=== PATIENT | female | born 1990 | race Caucasian/White ===

== ENCOUNTER → 2017-01-23 | Outpatient (CLI) | payer OTHER ==
[2016-01-12 12:09] VITALS: BP 141/79
[~2017-01-23] MED LIST: CONTRAST GIVEN MC PRN; IOHEXOL 240 MG/ML 50ML VIAL. PO ONE; IOHEXOL 300 MG/ML 75 ML VIAL IV ONE
--- NOTE | 2017-01-23 12:29 | RAD ---
CT scan of the abdomen with contrast 01/23/2017 Clinical History: Left-sided abdominal bulge. Technique: After oral and intravenous administration of contrast, contiguous, 5 mm axial sections were obtained through the abdomen and pelvis. 75 cc of Omnipaque 300 were administered intravenously during this examination. One or more of the following individualized dose reduction techniques were utilized for this study: 1. Automated exposure control. 2. Adjustment of the mA and/or kV according to patient size. 3. Use of iterative reconstruction technique. Findings: Comparison study is dated 05/16/2006. Images through the lung bases demonstrate minimal dependent subsegmental atelectasis bilaterally. The liver parenchyma has a decreased attenuation consistent with mild fatty infiltration. The spleen, pancreas, adrenal glands and kidneys are within normal limits. The abdominal aorta tapers normally. The gallbladder is well-distended. No free fluid or free air is seen within the abdomen. There is no evidence of bowel obstruction. The appendix is not visualized. There is a small left paracentral/lateral ventral hernia within the left lower quadrant of the abdomen. This contains fat. It measures 3 cm in greatest diameter. Impression: 3 cm fat-containing left paracentral/lateral ventral hernia within the left lower quadrant of the abdomen.
== END | disposition home or self-care (01) ==
LOC: CT 10:08
PROVIDERS: ATTEND Family Medicine
DX: K43.9 Ventral hernia without obstruction or gangrene (principal); Z86.69 Personal history of other diseases of the nervous system and sense organs
CPT/HCPCS: 74160; Q9966; Q9967

== ENCOUNTER → 2017-02-06 | Outpatient (CLI) | payer OTHER ==
[2016-01-12 12:09] VITALS: BP 141/79
[~2017-02-06] VITALS: Ht 157.5 cm; Wt 99.8 kg
[~2017-02-06] MED LIST changes: -CONTRAST GIVEN MC PRN; -IOHEXOL 240 MG/ML 50ML VIAL. PO ONE; -IOHEXOL 300 MG/ML 75 ML VIAL IV ONE; +SINCALIDE 2 MCG in IV NORMAL SALINE 50ML 30 ML IV ONE
--- NOTE | 2017-02-06 12:25 | RAD ---
Hepatobiliary scan with gallbladder ejection fraction History: Vomiting. Epigastric pain and right upper quadrant abdominal pain that radiates around to the back for one year. Technique: After IV infusion of 5.5 mCi of technetium 99m Choletec, anterior planar images of the upper abdomen were performed in sequential fashion and a time/activity curve was drawn. After IV infusion of 2.0 uCi of CCK, a gallbladder ejection fraction was measured and calculated. Comparison: No previous hepatobiliary scan. Findings: There is homogeneous uptake throughout the liver. Radiotracer activity is seen within the gallbladder x 15 minutes. Radiotracer activity is seen within the duodenum x 20 minutes. Gallbladder ejection fraction is measured and calculated to be 4%. This is low. Normal is greater than 35%. IMPRESSION: Low gallbladder ejection fraction of 4%.
== END | disposition home or self-care (01) ==
LOC: NM 07:40
PROVIDERS: ATTEND Internal Medicine Gastroenterology
DX: R10.13 Epigastric pain (principal); R11.2 Nausea with vomiting, unspecified
CPT/HCPCS: 78226; 96374; 96375; A9537; J2805

== ENCOUNTER → 2017-02-13 | Day surgery (SDC) | payer OTHER ==
[~2017-02-13] MED LIST changes: +HYDROmorphone 2 MG/ML VIAL IV PRN; +IV RINGERS,LACTATED 1000ML 1,000 ML IV SCH; +LIDOCAINE 1% 1 ML SYRINGE. ID PRN; +LIDOCAINE 2% PF Vial for OR 5 ML VIAL. ONE; +MORPHINE SULFATE 2 MG/ML DISP.SYRIN. IV PRN; +ONDANSETRON PF 4 MG/2 ML VIAL. IV PRN; +PROCHLORPERAZINE 10 MG/2 ML VIAL. IV PRN; +PROPOFOL 20 ML IV ONE; -SINCALIDE 2 MCG in IV NORMAL SALINE 50ML 30 ML IV ONE; +fentaNYL PF VIAL 100 MCG/2 ML VIAL IV PRN
[2017-02-13 13:25] VITALS: BP 116/78
[2017-02-13 14:12] LABS: NEG OBC UR NEG
[2017-02-13 14:13] LABS: POS OBC UR POS
== END | disposition home or self-care (01) ==
LOC: ENDOS 12:31
PROVIDERS: ATTEND Internal Medicine Gastroenterology
DX: K29.50 Unspecified chronic gastritis without bleeding (principal); J45.909 Unspecified asthma, uncomplicated; F17.200 Nicotine dependence, unspecified, uncomplicated; M19.90 Unspecified osteoarthritis, unspecified site; D64.9 Anemia, unspecified; Z82.49 Family history of ischemic heart disease and other diseases of the circulatory system; Z72.89 Other problems related to lifestyle; Z98.51 Tubal ligation status; Z91.040 Latex allergy status; Z86.69 Personal history of other diseases of the nervous system and sense organs; Z87.39 Personal history of other diseases of the musculoskeletal system and connective tissue
CPT/HCPCS: 43235; 81025; J2704; J2001

== ENCOUNTER 2017-02-21 12:13 | Day surgery (SDC) | payer OTHER ==
[~2017-02-21 12:13] MED LIST changes: +BUPIVACAINE-EPI 0.5%-1:200000 50 ML VIAL. ONE; +IOHEXOL 300 MG/ML 50 ML VIAL. ONE; -LIDOCAINE 2% PF Vial for OR 5 ML VIAL. ONE; -PROCHLORPERAZINE 10 MG/2 ML VIAL. IV PRN; -PROPOFOL 20 ML IV ONE; +SURGICEL HEMOSTAT 4X8 EACH. ONE
[2017-02-21 12:36] LABS: NEG OBC UR NEG; POS OBC UR POS
[2017-02-21] MEDS ORDERED: LIDOCAINE 2% PF Vial for OR 5 ML VIAL. ONE (13:30)
[2017-02-21] MEDS ORDERED: PROPOFOL 20 ML IV ONE (13:30)
[2017-02-21] MEDS ORDERED: ONDANSETRON PF 4 MG/2 ML VIAL. ONE (13:30)
[2017-02-21] MEDS ORDERED: FAMOTIDINE 20 MG/2 ML VIAL ONE (13:30)
[2017-02-21] MEDS ORDERED: DEXAMETHASONE SOD PHOS 20 MG/5 ML VIAL. ONE (13:30)
[2017-02-21] MEDS ORDERED: ROCURONIUM 50 MG/5 ML VIAL. ONE (13:31)
[2017-02-21] MEDS ORDERED: fentaNYL PF VIAL 100 MCG/2 ML VIAL ONE ×2 (13:31→14:06)
[2017-02-21] MEDS ORDERED: MIDAZOLAM HCL/PF 2 MG/2 ML VIAL. ONE (13:31)
[2017-02-21] MEDS ORDERED: PHENYLEPHRINE in 0.9% NACL PF 1 MG/10 ML DISP.SYRIN. IV ONE (13:52)
[2017-02-21] MEDS ORDERED: NEOSTIGMINE METHYLSULFATE 5 MG/5 ML SYRINGE. ONE (14:28)
[2017-02-21] MEDS ORDERED: KETOROLAC 30 MG/ML INJ FOR OR. INJ ONE (14:29)
[2017-02-21] MEDS ORDERED: DESFLURANE 31 TO 60 MINUTES IH ONE (14:32)
[2017-02-21] MEDS ORDERED: DESFLURANE 16 TO 30 MINUTES. IH ONE (14:32)
[2017-02-21] MEDS ORDERED: GLYCOPYRROLATE 1 MG/5 ML VIAL. ONE (14:32)
--- NOTE | 2017-02-21 14:40 | RAD ---
Intraoperative cholangiogram, 02/21/2017: History: Cholecystectomy A single spot film from surgery is presented for review. Contrast has been injected into the cystic duct remnant. 0.1 minutes of fluoroscopy time was utilized. The cystic duct is not clearly defined in this projection. The common bile duct is of normal caliber. No filling defect is seen in that duct to suggest a retained stone. Contrast does extend into the duodenum. The incompletely opacified intrahepatic ducts are unremarkable.
--- NOTE | 2017-02-21 14:42 | PDOC4 ---
MARIOLA MOHAMUD MD 02/21/17 1442: Operative Note Operative Note DATE OF SURGERY: 02/21/2017 PREOPERATIVE DIAGNOSIS: Biliary dyskinesia. POSTOPERATIVE DIAGNOSIS: Biliary dyskinesia. PROCEDURE: Laparoscopic cholecystectomy with intraoperative cholangiogram. SURGEON: Mariola Mohamud MD ANESTHESIA: General. ESTIMATED BLOOD LOSS: 10 mL. INTRAVENOUS FLUIDS: 1000 mL. INDICATIONS: The patient is a 26-year-old female with a history of abdominal pain, nausea, vomiting. EGD was unrevealing and PIPIDA scan showed gallbladder ejection fraction that was 4%. FINDINGS: Intraoperative cholangiogram is normal. PROCEDURE IN DETAIL: After informed consent was obtained, the patient was taken to the operating room and placed in the supine position. After adequate induction of general anesthesia, an umbilical skin incision was made with a scalpel, subcutaneous tissues with a hemostat. [facility] was used to grab the fascia and lift it anteriorly. Veress was used to gain access to the peritoneal cavity. Low opening pressures confirmed intraperitoneal placement of Veress. Pneumoperitoneum to 15 mmHg was established followed by placement of 5 mm port. A 5-mm 30-degree lens was inserted, which revealed good port placement. No evidence of entry trauma. She was placed head up, rotated towards her left. Three additional ports were placed under direct vision. The sites were injected with local anesthetic. Skin incisions were made and then an epigastric 11 mm and two 5 mm right lateral ports were placed. The fundus of the gallbladder was retracted over liver and slightly towards the right. Infundibulum was retracted towards the right and towards her toes to open the triangle of Calot. The leading peritoneal edge was scored with cautery medially and laterally and carried back towards the liver. [place] dissector was then used to dissect out the triangle of Calot. At the level of the infundibulum and the completion of dissection, 3 structures were seen leading directly to the gallbladder, one was a anterior branch of the cystic artery, one was the posterior branch of the cystic artery and one was a cystic duct. The gallbladder had been dissected away from the cystic plate. The liver could be seen behind the gallbladder and base of the gallbladder was free of extraneous tissue. Two clips were placed on anterior branch of the cystic artery proximally, one distally and a clip was placed on cystic duct adjacent to the gallbladder. Ductotomy was made with scissors. Intraoperative cholangiogram showed free flow of contrast through the cystic duct, common bile duct, common hepatic, left and right hepatics, intrahepatic radicles, free flow of contrast into the duodenum with no filling defects. The catheter was removed, the cholangiogram was interpreted as normal. Three clips were placed on the cystic duct distal to the ductotomy. Ductotomy completed with scissors. Anterior branch of the cystic artery transected sharply. The posterior branch of the artery was seen terminating on the body of the gallbladder and was clipped twice proximally and once distally. The gallbladder was removed from the bed of the liver with cautery and placed in laparoscopic bag and brought out through the epigastric incision. The right upper quadrant was inspected. There was no bleeding or bile leakage noted. Fascial closure device was used to close the fascia at the epigastric incision with an 0 Vicryl suture. The ports removed under direct vision. They were hemostatic. Pneumoperitoneum was desufflated. Skin incisions were closed with 4-0 Monocryl in subcuticular fashion. Sterile dressings were placed. After removal of the ports, the incisions were closed with 4-0 Monocryl in subcuticular fashion. Additional local was injected. Sterile dressings were placed. She tolerated the procedure well. There were no apparent complications. She is in the process of being transferred in stable condition to the recovery room. MK SRIVASTAVA MD 02/25/17 1645: MARIOLA MOHAMUD MD Feb 21, 2017 14:42 MK SRIVASTAVA MD Feb 25, 2017 16:45
[2017-02-21] MEDS ORDERED: ONDA4TAB7 PO (14:45)
[2017-02-21] MEDS ORDERED: OXYC-323 PO (14:45)
[2017-02-21] MEDS ORDERED: oxyCODONE/APAP 5/325 1 TAB TABLET PO ONE ×2 (15:00)
[2017-02-21] MEDS: PROCHLORPERAZINE 10 MG/2 ML VIAL. IV PRN ×2 (15:18→15:42)
[2017-02-21 16:40] VITALS: BP 128/73
== END 2017-02-21 17:03 | disposition home or self-care (01) ==
LOC: SURG 12:13
PROVIDERS: ATTEND Surgery
DX: K82.8 Other specified diseases of gallbladder (principal); E66.9 Obesity, unspecified; F41.9 Anxiety disorder, unspecified; Z68.27 Body mass index [BMI] 27.0-27.9, adult; D64.9 Anemia, unspecified; M19.90 Unspecified osteoarthritis, unspecified site; J45.909 Unspecified asthma, uncomplicated; Z86.69 Personal history of other diseases of the nervous system and sense organs; Z98.51 Tubal ligation status; Z87.39 Personal history of other diseases of the musculoskeletal system and connective tissue; Z72.89 Other problems related to lifestyle; Z91.040 Latex allergy status
CPT/HCPCS: 47563; 74300; 81025; 88304; J0690; J0780; J1100; J1885; J2001; J2250; J2370; J2405; J2704; J2710; J3010; J3490; J7030; J7120; Q9967; S0028

== ENCOUNTER 2017-03-26 07:02 | Day surgery (SDC) | payer OTHER ==
[~2017-03-26] VITALS: Ht 158.8 cm; Wt 101.2 kg
[~2017-03-26 07:02] MED LIST changes: +BUPIVAC MPF-EPI 0.5%-1:200000 30 ML VIAL. ONE; -BUPIVACAINE-EPI 0.5%-1:200000 50 ML VIAL. ONE; -IOHEXOL 300 MG/ML 50 ML VIAL. ONE; -MORPHINE SULFATE 2 MG/ML DISP.SYRIN. IV PRN; +OMEP20CA9 PO; +ONDA4TAB7 PO; +OXYC-323 PO; -SURGICEL HEMOSTAT 4X8 EACH. ONE
[2017-03-26 07:46] LABS: NEG OBC UR NEG; POS OBC UR POS
[2017-03-26] MEDS ORDERED: LIDOCAINE 2% PF Vial for OR 5 ML VIAL. ONE (08:15)
[2017-03-26] MEDS ORDERED: PROPOFOL 20 ML IV ONE (08:15)
[2017-03-26] MEDS ORDERED: ROCURONIUM 100 MG/10 ML VIAL. ONE (08:15)
[2017-03-26] MEDS ORDERED: fentaNYL PF VIAL 250 MCG/5 ML VIAL ONE (08:16)
[2017-03-26] MEDS ORDERED: MIDAZOLAM HCL/PF 2 MG/2 ML VIAL. ONE (08:16)
[2017-03-26] MEDS ORDERED: SUCCINYLCHOLINE 200 MG/10 ML VIAL. ONE (08:19)
[2017-03-26] MEDS ORDERED: ceFAZolin 2GM PREMIX 2 GM/50 ML BAG IV ONE (09:00)
[2017-03-26] MEDS ORDERED: NEOSTIGMINE 10 MG/10 ML VIAL. ONE (09:07)
[2017-03-26] MEDS ORDERED: GLYCOPYRROLATE 1 MG/5 ML VIAL. ONE (09:08)
[2017-03-26] MEDS ORDERED: KETOROLAC 60 MG/2 ML INJ FOR OR. ONE (09:59)
[2017-03-26] MEDS ORDERED: DEXAMETHASONE SOD PHOS 20 MG/5 ML VIAL. ONE (10:04)
[2017-03-26] MEDS ORDERED: DESFLURANE 61 TO 120 MINUTES IH ONE (10:04)
[2017-03-26] MEDS ORDERED: ONDANSETRON PF 4 MG/2 ML VIAL. ONE (10:04)
[2017-03-26] MEDS ORDERED: fentaNYL PF VIAL 100 MCG/2 ML VIAL ONE (10:32)
[2017-03-26] MEDS: fentaNYL PF VIAL 100 MCG/2 ML VIAL IV PRN ×2 (10:37→10:49)
[2017-03-26] MEDS: PROCHLORPERAZINE 10 MG/2 ML VIAL. IV PRN ×2 (10:37→11:09)
[2017-03-26] MEDS ORDERED: OXYC-323 PO (10:44)
[2017-03-26] MEDS ORDERED: oxyCODONE/APAP 5/325 1 TAB TABLET PO ONE (10:45)
--- NOTE | 2017-03-26 10:45 | PDOC ---
BRIEF OPERATIVE NOTE Pre-Op Diagnosis incisional hernia lap repair of inci hernia with mesh ricky neff ebl 25 ivf 1100 ml no specimen to rr stable KENNY MOHAMUD MD Mar 26, 2017 10:45
[2017-03-26] MEDS ORDERED: MORPHINE SULFATE 2 MG/ML DISP.SYRIN. ONE (11:08)
[2017-03-26] MEDS: MORPHINE SULFATE 2 MG/ML DISP.SYRIN. IV PRN ×2 (11:10→11:20)
[2017-03-26 11:34] VITALS: BP 106/53
--- NOTE | 2017-03-26 13:35 | OP ---
DATE OF SURGERY: 03/26/2017 PREOPERATIVE DIAGNOSIS: Incisional hernia. POSTOPERATIVE DIAGNOSIS: Incisional hernia. PROCEDURE: Laparoscopic incisional hernia repair with mesh. SURGEON: Mariola Mohamud M.D. ANESTHESIA: General. ESTIMATED BLOOD LOSS: 25 mL. IV FLUIDS: 1100 mL. INDICATIONS: The patient is a 27-year-old female who has previously had a laparoscopic appendectomy through her left lower quadrant 12 mm port, she developed a hernia. She is here for repair. FINDINGS: She had a 1.5 cm fascial defect, it was repaired ____ using a round piece of Prolene mesh cut with dimension of 4 x 4 cm, it was placed in the preperitoneal space, so the mesh did not come in contact with the abdominal contents. DESCRIPTION OF PROCEDURE: After informed consent was obtained, the patient was taken to the operating room and placed in supine position. After adequate induction of general anesthesia, she was prepped and draped in usual sterile fashion. An umbilical skin incision was made with a scalpel, subcutaneous tissues with a hemostat. [facility] was used to grab the fascia and lift it anteriorly. Veress was used to gain access to the peritoneal cavity. Low opening pressures confirmed intraperitoneal placement of the Veress. Pneumoperitoneum to 15 mmHg was established followed by placement of 5 mm port. A 5 mm 30 degree lens was inserted, which revealed good port placement. No evidence of entry trauma. She had some adhesions in a low midline of omentum to the abdominal wall. Right lower quadrant incision was made and then the area was injected with local anesthetic. A 5 mm port was placed. The omental adhesions were taken down sharply with some use of cautery. There was no bowel within the adhesions. At this point, the left lower quadrant was inspected. She has small hernia in the left lower quadrant with some omentum incarcerated within this and this was able to be reduced with a DeBakey grasper, the hernia defect was measured, it measured 1.5 cm for this portion of the procedure, an additional 5 mm suprapubic port was placed under direct vision after injecting the area with local anesthetic. The 1.5 cm hernia defect was inspected and then an incision was made in the peritoneum medial to this incision and then the peritoneum was dissected from medial to lateral to clear the preperitoneal space and create a place for the mesh to be placed. At this point, stab incision was made over the hernia with a scalpel. This incision measured about 2 mm and fascial closure PMI ____ device was then used to close the fascial defect using a 0 Prolene suture. After closing the fascial defect, a piece of 3 x 6 inch Prolene mesh was brought into the field, it was then cut into a circular piece that measured 4 x 4 cm. A single suture was placed in the center of this mesh as a transfascial suture with an 0 Prolene suture. The mesh was able to be rolled and then inserted through a 5 mm port, it was placed in the preperitoneal space and then the fascial closure device was then used to grab the suture right in the center of the initial hernia defect. This allowed the mesh to be anchored transfascially with a 0 Prolene suture and then the mesh was tacked and secured circumferentially with ____. At this point, the hernia was closed primarily. In addition, a 4 cm piece of mesh was used to cover the defect and then it was secured ____ intra-abdominal wall. The area had been injected with local anesthetic and then the peritoneum was reapproximated with a secure strap. There is one defect in the peritoneum where the hernia itself had been and this was closed with a PDS Endoloop. At the completion of the reapproximation of the flap, the mesh was completely covered, there is no defects in the peritoneum and no gaps in the peritoneal closure. There is no exposed mesh. The port was removed under direct vision. They were hemostatic. Pneumoperitoneum was desufflated. Skin incisions were closed with 4-0 Monocryl in subcuticular fashion. Sterile dressings were placed. She tolerated the procedure well. There were no apparent complications. She was then transferred in stable condition to the recovery room. MARIOLA MOHAMUD MD DR: DEEPTHI/nakita JOB#: [id number] / [id number] [facility] [address] [place], [facility]
== END 2017-03-26 12:09 | disposition home or self-care (01) ==
LOC: SURG 07:02
PROVIDERS: ATTEND Surgery
DX: K43.2 Incisional hernia without obstruction or gangrene (principal); J45.909 Unspecified asthma, uncomplicated; E66.9 Obesity, unspecified; Z68.27 Body mass index [BMI] 27.0-27.9, adult; F41.9 Anxiety disorder, unspecified; F17.200 Nicotine dependence, unspecified, uncomplicated; Z86.69 Personal history of other diseases of the nervous system and sense organs; Z90.49 Acquired absence of other specified parts of digestive tract; Z98.51 Tubal ligation status; Z72.89 Other problems related to lifestyle; Z91.040 Latex allergy status
CPT/HCPCS: 49654; 81025; C1781; J0330; J0690; J0780; J1100; J1885; J2250; J2270; J2405; J2704; J2710; J3010; J3490; J7030; J7120; J2001

== ENCOUNTER → 2017-09-01 | Outpatient (CLI) | payer OTHER | END | disposition home or self-care (01) | LOC: KCIC 14:05 | DX: R10.12 Left upper quadrant pain (principal); R05 Cough; R06.02 Shortness of breath | CPT/HCPCS: 71045; 74018 ==

== ENCOUNTER 2017-09-05 11:37 | Emergency (ER) | payer OTHER ==
[2017-09-05 13:09] LABS: BILIRUBIN,URINE NEGATIVE (NEG); CLARITY,URINE CLEAR; COLOR,URINE YELLOW; GLUCOSE,URINE NEGATIVE (NEG); NITRITE,URINE NEGATIVE (NEG); PROTEIN,URINE NEGATIVE (NEG-TRACE); UROBILINOGEN,URINE 0.2 mg/dL (0.2 mg/dL)
[2017-09-05 13:21] LABS: SQUAMOUS EPITHELIAL CELL,UR MOD /LPF
[2017-09-05 13:23] LABS: BACTERIA,URINE FEW /HPF (0-FEW)
[2017-09-05 13:55] LABS: NEG OBC UR NEG; POS OBC UR POS; U PREG PATIENT NEGATIVE (NEG)
[2017-09-08 20:13] LABS: CHLAMYDIA PROBE Negative (Negative); GC PROBE Negative (Negative)
== END 2017-09-05 16:12 | disposition home or self-care (01) ==
LOC: ER 11:37
DX: N93.8 Other specified abnormal uterine and vaginal bleeding (principal); N83.209 Unspecified ovarian cyst, unspecified side; Z90.49 Acquired absence of other specified parts of digestive tract; Z98.51 Tubal ligation status; Z91.040 Latex allergy status
CPT/HCPCS: 76830; 76856; 81001; 81025; 87491; 87591; 99285-25; Q0111

== ENCOUNTER → 2019-07-05 | Outpatient (CLI) | payer OTHER ==
[2017-09-05 16:02] VITALS: BP 105/66
[~2019-07-05] MED LIST changes: -BUPIVAC MPF-EPI 0.5%-1:200000 30 ML VIAL. ONE; -HYDROmorphone 2 MG/ML VIAL IV PRN; -IV RINGERS,LACTATED 1000ML 1,000 ML IV SCH; -LIDOCAINE 1% 1 ML SYRINGE. ID PRN; +NAPR375T5 PO; +OMEP20CA10 PO; -OMEP20CA9 PO; -ONDANSETRON PF 4 MG/2 ML VIAL. IV PRN; -OXYC-323 PO; +OXYC1TAB15 PO; -fentaNYL PF VIAL 100 MCG/2 ML VIAL IV PRN
--- NOTE | 2019-07-05 15:01 | RAD ---
Renal ultrasound without comparison for right-sided back pain, right upper quadrant abdominal pain. TECHNIQUE: Real-time grayscale and color Doppler evaluation of the kidneys and bladder is performed. The right kidney measures 10.6 x 4.3 x 4.6 cm in the left measures 10.7 x 5.1 x 4.8 cm. There is no hydronephrosis or focal parenchymal abnormality involving either kidney. There is normal color flow to both kidneys. The urinary bladder is only partially fluid distended but is otherwise unremarkable. IMPRESSION: 1. Normal renal ultrasound. Electronically signed by: Marc Dewitt MD (07/05/2019 2:59 PM) [id number]
== END | disposition home or self-care (01) ==
LOC: US 10:38
PROVIDERS: ATTEND Family Medicine
DX: M54.9 Dorsalgia, unspecified (principal)
CPT/HCPCS: 76700

== ENCOUNTER → 2019-07-28 | Outpatient (CLI) | payer OTHER ==
[2017-09-05 16:02] VITALS: BP 105/66
[~2019-07-28] MED LIST changes: +OMEP-229 PO; -OMEP20CA10 PO
--- NOTE | 2019-07-28 08:51 | RAD ---
Complete abdomen ultrasound study Clinical indications: Right upper quadrant abdominal pain FINDINGS: No focal enlargement of the pancreas is seen. No focal aneurysmal dilatation of the abdominal aorta is seen. The intrahepatic portion of the IVC is unremarkable. The liver measures 16.8 cm in length which is normal. No hepatic mass is seen. The gallbladder is surgically absent. The extra hepatic bile duct measures 6 mm in caliber which is normal. The length of the right kidney is 11.5 cm. The length of the left kidney is 11.0 cm. No hydronephrosis or renal mass or perinephric fluid collection is seen on either side. The spleen measures 8.6 cm in length which is normal. No ascites is seen. IMPRESSION: Unremarkable study. Electronically signed by: Artemio Rose MD (07/28/2019 8:48 AM) [facility]
== END | disposition home or self-care (01) ==
LOC: US 07:14
PROVIDERS: ATTEND Family Medicine
DX: R10.11 Right upper quadrant pain (principal); M19.90 Unspecified osteoarthritis, unspecified site; K58.9 Irritable bowel syndrome, unspecified; E66.01 Morbid (severe) obesity due to excess calories; Z90.49 Acquired absence of other specified parts of digestive tract; Z90.89 Acquired absence of other organs
CPT/HCPCS: 76700

== ENCOUNTER 2020-10-25 17:35 | Emergency (ER) | payer OTHER ==
[~2020-10-25] VITALS: Ht 157.5 cm; Wt 90.1 kg
[~2020-10-25 17:35] MED LIST changes: -OMEP-229 PO; +OMEP20CA16 PO
[2020-10-25 18:21] LABS: BILIRUBIN,URINE NEGATIVE (NEG); CLARITY,URINE CLEAR; COLOR,URINE YELLOW; NITRITE,URINE NEGATIVE (NEG); PROTEIN,URINE NEGATIVE (NEG-TRACE); UROBILINOGEN,URINE 0.2 mg/dL (0.2 mg/dL)
[2020-10-25 18:27] LABS: BACTERIA,URINE MANY /HPF (0-FEW)
[2020-10-25 18:29] LABS: WBC,URINE OCC /HPF (0-4)
--- NOTE | 2020-10-25 19:29 | PHYS DOC ---
Past Medical History Past Medical History: Other Additional Past Medical Histor: ovarian cyst Past Surgical History: Appendectomy, Cholecystectomy, , Tonsillectomy, Tubal ligation Smoking Status: Former Smoker Alcohol Use: Rarely Drug Use: None General Adult EDM: Chief Complaint: NAUSEA/VOMITING/DIARRHA HPI: HPI: Patient is a 30 year old female who is on prescription Zyrtec with past surgical history of appendectomy Choley hysterectomy presents with a chief complaint of nausea vomiting diarrhea x2 days. Patient states symptoms progressively worse since onset. Patient states she has some associated abdominal discomfort. Patient denies any upper respiratory symptoms no fever chills cough or shortness of breath. Review of Systems: Review of Systems: Review of systems: Constitutional symptoms- No fever, no chills. Eyes- No Discharge, No Visual Loss Respiratory symptoms- No shortness of breath, No wheezing, No Dyspnea on Exertion Cardiovascular Systems; No chest pain, No Palpitations, No syncope Gastrointestinal symptoms: Positive abdominal pain, Positive nausea, Positive vomiting or diarrhea. Genitourinary symptoms: No dysuria. Musculoskeletal symptoms: No back pain No extremity pain. NEUROLOGICAL Symptoms: No headache, no generalized weakness; No focal Weakness Heart Score: C/O Chest Pain: No Risk Factors: Risk Factors: DM, Current or recent (<one month) smoker, HTN, HLP, family history of CAD, obesity. Risk Scores: Score 0 - 3: 2.5% MACE over next 6 weeks - Discharge Home Score 4 - 6: 20.3% MACE over next 6 weeks - Admit for Clinical Observation Score 7 - 10: 72.7% MACE over next 6 weeks - Early Invasive Strategies Allergies: Allergies: Allergies Coded Allergies Type Severity Reaction Last Updated Verified latex Allergy Intermediate 03/26/17 Yes Physical Exam: PE: Constitutional: Well developed, well nourished, no acute distress, non-toxic appearance. [] HENT: Normocephalic, atraumatic, bilateral external ears normal, oropharynx moist, no oral exudates, nose normal. [] Eyes: PERRLA, EOMI, conjunctiva normal, no discharge. [] Neck: Normal range of motion, no tenderness, supple, no stridor. [] Cardiovascular:Heart rate regular rhythm, no murmur [] Lungs & Thorax: Bilateral breath sounds clear to auscultation [] Abdomen: Bowel sounds normal, soft, no tenderness, no masses, no pulsatile masses. [] Skin: Warm, dry, no erythema, no rash. [] Back: No tenderness, no CVA tenderness. [] Extremities: No tenderness, no cyanosis, no clubbing, ROM intact, no edema. [] Neurologic: Alert and oriented X 3, normal motor function, normal sensory function, no focal deficits noted. [] Psychologic: Affect normal, judgement normal, mood normal. [] Current Patient Data: Labs: Laboratory Tests Test 10/25/20 18:00 10/25/20 18:14 Urine Collection Type Unknown Urine Color Yellow Urine Clarity Clear Urine pH 6.0 (<5.0-8.0) Urine Specific [place] 1.010 (1.000-1.030) Urine Protein Negative mg/dL (NEG-TRACE) Urine Glucose (UA) Negative mg/dL (NEG) Urine Ketones (Stick) Negative mg/dL (NEG) Urine Blood Small (NEG) Urine Nitrite Negative (NEG) Urine Bilirubin Negative (NEG) Urine Urobilinogen Dipstick 0.2 mg/dL (0.2 mg/dL) Urine Leukocyte Esterase Negative (NEG) Urine RBC 1-2 /HPF (0-2) Urine WBC Occ /HPF (0-4) Urine Squamous Epithelial Cells Many /LPF Urine Bacteria Many /HPF (0-FEW) POC Urine HCG, Qualitative Hcg negative (Negative) Vital Signs: Vital Signs Date Time Temp Pulse Resp B/P (MAP) Pulse Ox O2 Delivery O2 Flow Rate FiO2 10/25/20 19:10 98.6 95 20 139/83 (101) 99 Room Air 98.6 EKG: EKG: [] Radiology/Procedures: Radiology/Procedures: [] Course & Med Decision Making: Course & Med Decision Making Pertinent Labs and Imaging studies reviewed. (See chart for details) [] Patient was evaluated for chief complaint. Work-up consisted of laboratory analysis. Results reviewed and discussed with patient. Treatment included IV f luids and Zofran. Patient without any episodes of emesis in the ER. Patient discharged home on Zofran. Patient's potassium noted to be 3.0. She was discharged home with potassium. Patient also received a prescription for Compazine. Earl Disclaimer: Earl Disclaimer: This electronic medical record was generated, in whole or in part, using a voice recognition dictation system. Departure Departure Impression: Primary Impression: Gastroenteritis Additional Impression: Hypokalemia Disposition: 01 DC HOME SELF CARE/HOMELESS Condition: STABLE Referrals: Sola SRIVASTAVA MD (PCP) Patient Instructions: Viral Gastroenteritis Scripts Potassium Chloride (POTASSIUM CHLORIDE ) 20 Meq Tablet.er 20 MEQ PO DAILY for SUPPLEMENT for 10 Days, #7 TAB.SR Prov: SAE LEBLANC DO 10/25/20 Prochlorperazine Maleate (Compazine) 10 Mg Tablet 1 TAB PO Q6HRS for 7 Days, #28 TAB 0 Refills Prov: SAE LEBLANC DO 10/25/20 Ondansetron Hcl (ZOFRAN) 4 Mg Tablet 1 TAB PO Q6HRS, #20 TAB Prov: SAE LEBLANC DO 10/25/20 SAE LEBLANC DO Oct 25, 2020 19:29
[2020-10-25] MEDS ORDERED: KETOROLAC 30 MG/ML VIAL. IVP ONE (19:30)
[2020-10-25 19:36] LABS: BASO % 0 % (0-3); EOS % 1 % (0-3); HEMATOCRIT 39.8 % (36.0-47.0); LYMPH % 19 % (24-48); MEAN CORPUSCULAR HEMOGLOBIN 31 pg (25-35); MEAN CORPUSCULAR HGB CONC 35 g/dL (31-37); MEAN CORPUSCULAR VOLUME 89 fL (79-100); MONO # 0.5 x10^3/uL (0.0-1.1); MONO % 9 % (0-9); NEUT # 3.9 x10^3/uL (1.8-7.7); NEUT % 71 % (31-73); PLATELET COUNT 211 x10^3/uL (140-400); RED BLOOD COUNT 4.48 x10^6/uL (3.50-5.40); RED CELL DISTRIBUTION WIDTH 12.1 % (11.5-14.5); WHITE BLOOD COUNT 5.4 x10^3/uL (4.0-11.0)
[2020-10-25] MEDS ORDERED: ONDANSETRON PF 4 MG/2 ML VIAL. IVP ONE ×2 (19:45→20:45)
[2020-10-25] MEDS ORDERED: IV NORMAL SALINE 1000ML BAG 1,000 ML IV ONE ×2 (19:45→20:45)
[2020-10-25] MEDS ORDERED: ONDA4TAB7 PO (22:10)
[2020-10-25 22:18] LABS: CALCIUM 7.8 mg/dL (8.5-10.1); CREATININE 0.9 mg/dL (0.6-1.0); GFR 73.5
[2020-10-25 22:24] LABS: ALBUMIN 3.4 g/dL (3.4-5.0); ALBUMIN/GLOBULIN RATIO 0.9 (1.0-1.7); TOTAL BILIRUBIN 0.5 mg/dL (0.2-1.0); TOTAL PROTEIN 7.1 g/dL (6.4-8.2)
[2020-10-25] MEDS ORDERED: PROCHLORPERAZINE 10 MG/2 ML VIAL. IV ONE (22:30)
[2020-10-25] MEDS ORDERED: PROC10TA57 PO (22:30)
[2020-10-25] MEDS ORDERED: POTA20TA4 PO (22:39)
[2020-10-25 22:44] VITALS: BP 108/66
== END 2020-10-25 22:53 | disposition home or self-care (01) ==
LOC: ER 17:35
DX: K52.9 Noninfective gastroenteritis and colitis, unspecified (principal); E87.6 Hypokalemia; Z87.891 Personal history of nicotine dependence; Z90.89 Acquired absence of other organs; Z98.51 Tubal ligation status; Z91.040 Latex allergy status
CPT/HCPCS: 36415; 80053; 81001; 81025; 85025; 87086; 96361; 96374; 96375; 96376; 99285; J0780; J1885; J2405; J7030

== ENCOUNTER → 2020-12-29 | Outpatient (CLI) | payer OTHER ==
[~2020-12-29] MED LIST changes: +POTA20TA4 PO; +PROC10TA57 PO
--- NOTE | 2020-12-29 16:22 | KCIC ---
STUDY: MRI of the right wrist without contrast INDICATION: Right wrist pain. COMPARISON: None. TECHNIQUE: Multiplanar MR imaging of the right wrist performed without the use of intravenous or intr a-articular contrast. FINDINGS: Bones/cartilage: Trace edema at the distal margin of the ulna without an associated fracture. Neutral ulnar variance. The scapholunate interval is within normal limits. No full-thickness chondral defect . Ligaments: The scapholunate and lunotriquetral ligaments are intact. Sprain/partial tear of the volar ulnocarpal ligament. Mild sprain of the dorsal ulnocarpal ligament and ulnar collateral ligament. Musculotendinous: Possible low-grade partial tear of the extensor carpi ulnaris along the distal ulna which becomes mildly irregular in morphology and with thin internal signal elevation proximal to the ulnar styloid process, image 21 series 6. Mild ECU tenosynovitis. The ECU remains normally located w ithout evidence for subsheath rupture. The additional extensor tendons are intact as are the flexors. TFCC: Tear of the TFC articular disc with the defect measuring 1.5 mm transverse, image 28 series 11. The volar and dorsal radioulnar bands are intact as are the foveal and styloid attachments. Miscellaneous: Soft tissue edema along the distal ulna. Trace fluid within the distal radioulnar join t. Small volar radiocarpal ganglion cyst measuring 1.5 mm in thickness by 7 mm transverse by 6 mm pro ximal to distal. IMPRESSION: 1. Tear of the TFCC articular disc with the defect measuring 1.5 mm transverse, image 28 series 11. The additional components of the TFCC are intact. 2. Sprain and a partial tear of the volar ulnocarpal ligament and mild sprain of the dorsal ulnocarp al and ulnar collateral ligaments. Soft tissue edema along the distal ulna and trace distal radioulna r joint fluid. 3. Possible low-grade partial tear of the extensor carpi ulnaris along the distal ulna, image 21 ser ies 6. Mild ECU tenosynovitis. Electronically signed by: MAYDA LIGHT MD (12/29/2020 4:19 PM) [id number]
== END ==
LOC: KCIC MRI 14:26
PROVIDERS: ATTEND Family Medicine
DX: S63.501A Unspecified sprain of right wrist, initial encounter (principal); X58.XXXA Exposure to other specified factors, initial encounter; Y93.89 Activity, other specified; Y92.89 Other specified places as the place of occurrence of the external cause; Y99.8 Other external cause status
CPT/HCPCS: 73221

== ENCOUNTER 2021-10-22 12:35 | Inpatient (IN) | payer OTHER ==
[~2021-10-22] VITALS: Ht 158.8 cm; Wt 102.5 kg
[2021-10-22 13:15] LABS: U PREG PATIENT NEGATIVE (NEG)
[2021-10-22] MEDS ORDERED: IV NORMAL SALINE 1000ML BAG 1,000 ML IV ONE (13:30)
[2021-10-22] MEDS ORDERED: KETOROLAC 30 MG/ML VIAL. IVP ONE (13:30)
[2021-10-22] MEDS ORDERED: ONDANSETRON PF 4 MG/2 ML VIAL. IVP ONE (13:30)
[2021-10-22 13:41] LABS: BASO % 0 % (0-3); EOS # 0.2 x10^3/uL (0.0-0.7); EOS % 4 % (0-3); HEMATOCRIT 39.7 % (36.0-47.0); HEMOGLOBIN 13.5 g/dL (12.0-15.5); LYMPH # 1.3 x10^3/uL (1.0-4.8); LYMPH % 20 % (24-48); MEAN CORPUSCULAR HEMOGLOBIN 31 pg (25-35); MEAN CORPUSCULAR HGB CONC 34 g/dL (31-37); MEAN CORPUSCULAR VOLUME 91 fL (79-100); MONO # 0.6 x10^3/uL (0.0-1.1); MONO % 9 % (0-9); NEUT # 4.2 x10^3/uL (1.8-7.7); NEUT % 67 % (31-73); PLATELET COUNT 261 x10^3/uL (140-400); RED BLOOD COUNT 4.38 x10^6/uL (3.50-5.40); RED CELL DISTRIBUTION WIDTH 12.3 % (11.5-14.5); WHITE BLOOD COUNT 6.3 x10^3/uL (4.0-11.0)
[2021-10-22 13:43] LABS: BILIRUBIN,URINE NEGATIVE (NEG); CLARITY,URINE CLEAR; COLOR,URINE YELLOW
[2021-10-22 13:44] LABS: NITRITE,URINE NEGATIVE (NEG); PH,URINE 5.5 (<5.0-8.0); PROTEIN,URINE NEGATIVE (NEG-TRACE); UROBILINOGEN,URINE 0.2 mg/dL (0.2 mg/dL)
[2021-10-22 13:45] LABS: HYALINE CASTS, URINE MODERATE /HPF
[2021-10-22 13:47] LABS: BACTERIA,URINE MANY /HPF (0-FEW)
[2021-10-22 13:49] LABS: CALCIUM 8.8 mg/dL (8.5-10.1); GFR 64.7
[2021-10-22 13:55] LABS: ALBUMIN 3.6 g/dL (3.4-5.0); ALBUMIN/GLOBULIN RATIO 0.9 (1.0-1.7); TOTAL BILIRUBIN 0.5 mg/dL (0.2-1.0); TOTAL PROTEIN 7.4 g/dL (6.4-8.2)
[2021-10-22] MEDS ORDERED: diphenhydrAMINE 50 MG/ML VIAL IVP ONE (14:15)
--- NOTE | 2021-10-22 14:26 | RAD ---
EXAM: Abdomen and pelvis CT without intravenous contrast. HISTORY: Left-sided flank and rectal pain. Hematuria. TECHNIQUE: Computed tomographic images of the abdomen and pelvis were obtained without contrast. Mult iplanar reformatting was performed. *One or more of the following individualized dose reduction techniques were utilized for this examina tion: 1. Automated exposure control. 2. Adjustment of the mA and/or kV according to patient size. 3. Use of iterative reconstruction technique. COMPARISON: 01/23/2017. FINDINGS: Evaluation of the lower thorax demonstrates no infiltrate or pleural effusion. No hepatic l esion is seen. The gallbladder is surgically absent. The pancreas, spleen, stomach and adrenal glands are unremarkable. There is no nephroureterolithiasis or hydronephrosis. No suspicious renal lesion i s seen. The bladder is nearly empty. The appendix is surgically absent. There is no bowel obstruction or abnormal bowel wall thickening. There are metallic clips within the midline right ventral peritoneum and anterior left ventral perito neum, the configuration of which favors displaced fallopian tube closure devices there is a third met allic clip within the midline posterior cul-de-sac. There is trace pelvic free fluid. There is a 4.0 cm soft tissue structure within the right hemipelvis which may be ovarian or uterine in etiology. The left ovary is separately unremarkable. There is trace pelvic free fluid. The aorta is normal in cesar ara. There is a 1.5 cm nodule within the mesentery of the right midabdomen, possibly due to an enlarg ed lymph node. There is no acute or suspicious osseous finding. IMPRESSION: 1. No evidence of nephroureterolithiasis or hydronephrosis. 2. Trace pelvic free fluid, within physiologic limits for a premenopausal female. There is a 4.0 cm s tructure within the right hemipelvis which may be ovarian or uterine in etiology. The contralateral o vary is unremarkable. Correlate with surgical history and pelvic sonography if there is clinical conc nadege. 3. Suspected displaced fallopian tube closure devices within the peritoneum. 4. 1.5 cm soft tissue nodule within the mesentery of the right midabdomen. This is increased or new c ompared to the prior study, possibly due to an enlarged lymph node. Short-term follow-up with a CT in approximately 6 months is recommended to exclude neoplasm. Electronically signed by: Michelle Tyler MD (10/22/2021 2:23 PM) [id number]
--- NOTE | 2021-10-22 14:43 | PHYS DOC ---
Past Medical History Past Medical History: Other Additional Past Medical Histor: ovarian cyst Past Surgical History: Appendectomy, Cholecystectomy, , Tonsillectomy, Tubal ligation Smoking Status: Current Every Day Smoker Additional Information: VAPE Alcohol Use: None Drug Use: None General Adult EDM: Chief Complaint: BACK PAIN OR INJURY HPI: HPI: Patient is a 31-year-old female presents to the emergency department complaining of rectal pain that started 1 week ago. Patient reports she seen a primary care provider Dr. Carlos and was started on hydrocortisone AC suppositories which does not seem to be helping. Patient does report a history of hemorrhoids however states it does not feel like her normal hemorrhoid pain. Patient reports 3 days ago the pain started radiating to her right lower abdominal quadrant to right flank and into the right mid part of her back. Patient denies recent injury or trauma. Patient denies constipation or diarrhea. Denies seeing blood in her stool. Patient denies increased urinary frequency, urinary burning, urinary pressure, hematuria or other dysuria. Patient denies chest pains, chest palpitations, recent fever or chills, shortness of breath. Patient does report a past surgical history of hysterectomy, , cholecystectomy, tubal ligation. Patient states she does have an appointment to see her aircraft mechanic armament Dr. Parks on the of this month for evaluation of her rectal pain however was unable to control her pain with [id number] Tylenol and Motrin at home. Patient reports she took Motrin yesterday without relief in pain, took 1 g of Tylenol at 10 AM this morning without relief in pain currently rates a 8 out of 10 pain however can physician self for comfort to reduce pain to a 6 or 7 out of 10. Patient denies any other physical complaints or physical concerns. Review of Systems: Review of Systems: 14 body systems of review of systems have been reviewed. See HPI for pertinent positives and negative responses, otherwise all other systems are negative, nonpertinent or noncontributory. Constitutional: Negative except as outlined in HPI above. Skin: Negative except as outlined in HPI above. Eyes: Negative except as outlined in HPI above. HENT: Negative except as outlined in HPI above. Respiratory: Negative except as outlined in HPI above. Cardiovascular: Negative except as outlined in HPI above. GI: Negative except as outlined in HPI above. : Negative except as outlined in HPI above. Musculoskeletal: Negative except as outlined in HPI above. Integument: Negative except as outlined in HPI above. Neurologic: Negative except as outlined in HPI above. Endocrine: Negative except as outlined in HPI above. Lymphatic: Negative except as outlined in HPI above. Psychiatric: Negative except as outlined in HPI above. Heart Score: C/O Chest Pain: No Risk Factors: Risk Factors: DM, Current or recent (<one month) smoker, HTN, HLP, family his tory of CAD, obesity. Risk Scores: Score 0 - 3: 2.5% MACE over next 6 weeks - Discharge Home Score 4 - 6: 20.3% MACE over next 6 weeks - Admit for Clinical Observation Score 7 - 10: 72.7% MACE over next 6 weeks - Early Invasive Strategies Current Medications: Patient reports home medications as Zyrtec, omeprazole, hydrocortisone AC suppository, allergy injections monthly, rectal lidocaine topical cream. Current Medications Medications (Trade) Dose Ordered Sig/Angelina Start Time Stop Time Status Last Admin Dose Admin Diphenhydramine HCl (Benadryl) 50 mg 1X ONCE 10/22/21 14:15 10/22/21 14:24 DC Ketorolac Tromethamine (Toradol 30mg Vial) 30 mg 1X ONCE 10/22/21 13:30 10/22/21 13:38 DC 10/22/21 13:45 30 MG Ondansetron HCl (Zofran) 4 mg 1X ONCE 10/22/21 13:30 10/22/21 13:38 DC 10/22/21 13:45 4 MG Sodium Chloride 1,000 ml @ 1,000 mls/hr 1X ONCE 10/22/21 13:30 10/22/21 14:29 DC 10/22/21 13:46 1,000 MLS/HR Allergies: Allergies: Allergies Coded Allergies Type Severity Reaction Last Updated Verified latex Allergy Intermediate 03/26/17 Yes Physical Exam: PE: Constitutional: Well developed, well nourished, no acute distress, non-toxic appearance. 31-year-old female in no apparent distress. HENT: Normocephalic, atraumatic. Eyes: Conjunctiva normal, no discharge. Neck: Normal range of motion. Cardiovascular: Distal cap refill less than 2 seconds, no cyanosis appreciated. Lungs & Thorax: Patient is in no respiratory distress, no adventitious lung sounds appreciated. Abdomen: Bowel sounds normal, soft, right lower quadrant pain without rebound tenderness, negative Hess sign, negative psoas sign, there is right flank pain to palpation., no masses, no pulsatile masses. No bruising or skin discoloration of the abdomen. Skin: Warm, dry, no erythema, urticarial rash to right elbow, right hip, and right trapezius area with lichenification. Back: No left-sided or right-sided CVA TTP, no deformities appreciated, there is pain to the right lumbar muscular structures to palpation. Extremities: No tenderness, no cyanosis, no clubbing, ROM intact, no edema. Neurologic: Alert and oriented X 3, normal motor function, normal sensory function, no focal deficits noted. Psychologic: Affect normal, judgement normal, mood normal. : Rectal exam performed with female ED nurse at bedside for senior controls engineer, there is a nonstrangulated noninfected appearing 2 mm external hemorrhoid at the 6 o'clock position of rectum, rectal examination without abnormalities, there was no stool in the rectal vault, no blood appreciated during exam. No rashes or lesions appreciated. Patient tolerated well. Current Patient Data: Labs: Laboratory Tests Test 10/22/21 12:46 10/22/21 13:32 Urine Collection Type Unknown Urine Color Yellow Urine Clarity Clear Urine pH 5.5 (<5.0-8.0) Urine Specific [place] >=1.030 (1.000-1.030) Urine Protein Negative mg/dL (NEG-TRACE) Urine Glucose (UA) Negative mg/dL (NEG) Urine Ketones (Stick) Negative mg/dL (NEG) Urine Blood Moderate (NEG) Urine Nitrite Negative (NEG) Urine Bilirubin Negative (NEG) Urine Urobilinogen Dipstick 0.2 mg/dL (0.2 mg/dL) Urine Leukocyte Esterase Negative (NEG) Urine RBC 3-5 /HPF (0-2) Urine WBC 1-4 /HPF (0-4) Urine Squamous Epithelial Cells Many /LPF Urine Bacteria Many /HPF (0-FEW) Urine Hyaline Casts Moderate /HPF Urine Mucus Marked /LPF Urine Test Negative (NEG) White Blood Count 6.3 x10^3/uL (4.0-11.0) Red Blood Count 4.38 x10^6/uL (3.50-5.40) Hemoglobin 13.5 g/dL (12.0-15.5) Hematocrit 39.7 % (36.0-47.0) Mean Corpuscular Volume 91 fL (79-100) Mean Corpuscular Hemoglobin 31 pg (25-35) Mean Corpuscular Hemoglobin Concent 34 g/dL (31-37) Red Cell Distribution Width 12.3 % (11.5-14.5) Platelet Count 261 x10^3/uL (140-400) Neutrophils (%) (Auto) 67 % (31-73) Lymphocytes (%) (Auto) 20 % (24-48) L Monocytes (%) (Auto) 9 % (0-9) Eosinophils (%) (Auto) 4 % (0-3) H Basophils (%) (Auto) 0 % (0-3) Neutrophils # (Auto) 4.2 x10^3/uL (1.8-7.7) Lymphocytes # (Auto) 1.3 x10^3/uL (1.0-4.8) Monocytes # (Auto) 0.6 x10^3/uL (0.0-1.1) Eosinophils # (Auto) 0.2 x10^3/uL (0.0-0.7) Basophils # (Auto) 0.0 x10^3/uL (0.0-0.2) Sodium Level 141 mmol/L (136-145) Potassium Level 4.0 mmol/L (3.5-5.1) Chloride Level 105 mmol/L (98-107) Carbon Dioxide Level 24 mmol/L (21-32) Anion Gap 12 (6-14) Blood Urea Nitrogen 11 mg/dL (7-20) Creatinine 1.0 mg/dL (0.6-1.0) Estimated GFR (Cockcroft-Gault) 64.7 BUN/Creatinine Ratio 11 (6-20) Glucose Level 90 mg/dL (70-99) Calcium Level 8.8 mg/dL (8.5-10.1) Total Bilirubin 0.5 mg/dL (0.2-1.0) Aspartate Amino Transferase (AST) 20 U/L (15-37) Alanine Aminotransferase (ALT) 25 U/L (14-59) Alkaline Phosphatase 59 U/L (46-116) Total Protein 7.4 g/dL (6.4-8.2) Albumin 3.6 g/dL (3.4-5.0) Albumin/Globulin Ratio 0.9 (1.0-1.7) L Lipase 65 U/L (73-393) L Laboratory Tests 10/22/21 13:32 Laboratory Tests 10/22/21 13:32 Vital Signs: Vital Signs Date Time Temp Pulse Resp B/P (MAP) Pulse Ox O2 Delivery O2 Flow Rate FiO2 10/22/21 12:37 99.2 113 20 136/78 (97) 98 Room Air 99.2 EKG: EKG: [] Radiology/Procedures: Radiology/Procedures: REASON: rt sided flank/rectal pain, hematuria PROCEDURE: CT ABDOMEN PELVIS WO CONTRAST EXAM: Abdomen and pelvis CT without intravenous contrast. HISTORY: Left-sided flank and rectal pain. Hematuria. TECHNIQUE: Computed tomographic images of the abdomen and pelvis were obtained without contrast. Multiplanar reformatting was performed. *One or more of the following individualized dose reduction techniques were utilized for this examination: 1. Automated exposure control. 2. Adjustment of the mA and/or kV according to patient size. 3. Use of iterative reconstruction technique. COMPARISON: 01/23/2017. FINDINGS: Evaluation of the lower thorax demonstrates no infiltrate or pleural effusion. No hepatic lesion is seen. The gallbladder is surgically absent. The pancreas, spleen, stomach and adrenal glands are unremarkable. There is no nephroureterolithiasis or hydronephrosis. No suspicious renal lesion is seen. The bladder is nearly empty. The appendix is surgically absent. There is no bowel obstruction or abnormal bowel wall thickening. There are metallic clips within the midline right ventral peritoneum and anterior left ventral peritoneum, the configuration of which favors displaced fallopian tube closure devices there is a third metallic clip within the midline posterior cul-de-sac. There is trace pelvic free fluid. There is a 4.0 cm soft tissue structure within the right hemipelvis which may be ovarian or uterine in etiology. The left ovary is separately unremarkable. There is trace pelvic free fluid. The aorta is normal in caliber. There is a 1.5 cm nodule within the mesentery of the right midabdomen, possibly due to an enlarged lymph node. There is no acute or suspicious osseous finding. IMPRESSION: 1. No evidence of nephroureterolithiasis or hydronephrosis. 2. Trace pelvic free fluid, within physiologic limits for a premenopausal female. There is a 4.0 cm structure within the right hemipelvis which may be ovarian or uterine in etiology. The contralateral ovary is unremarkable. Correlate with surgical history and pelvic sonography if there is clinical concern. 3. Suspected displaced fallopian tube closure devices within the peritoneum. 4. 1.5 cm soft tissue nodule within the mesentery of the right midabdomen. This is increased or new compared to the prior study, possibly due to an enlarged lymph node. Short-term follow-up with a CT in approximately 6 months is recommended to exclude neoplasm. Electronically signed by: Michelle Tyler MD (10/22/2021 2:23 PM) [id number] Course & Med Decision Making: Course & Med Decision Making Pertinent Labs and Imaging studies reviewed. (See chart for details) 31-year-old female, vital signs reviewed, presents to the emergency department concerning rectal pain that radiates to right lower abdominal quadrant and right flank into right mid back for the past 3 days. Patient also has urticaria, see physical exam note for details, will order CBC, CMP, lipase, urinalysis assay, IV normal saline, IV Zofran, IV Toradol, IV Benadryl. IV Benadryl reduced erythemic appearance of urticarial rash, patient states she no longer has itching sensation, reports this is a normal reaction for her chronic allergies. Patient reports pain has reduced to a 2 or 3 out of 10 since receiving IV morphine. The patient's urine is not infected, CBC and CMP are unremarkable. CT abdomen pelvis concerning for 4 cm right hemipelvis mass, 1.5 cm soft tissue right-sided mesenteric nodule, displaced tubal ligation clip, upon reevaluation of the patient, patient reports she is aware of her displaced tubal ligation clip reporting during her hysterectomy she was told by the surgeon they were unable to find the clip and it remains in her abdomen as far she is aware of. Patient is not aware of any nodules or masses within her abdomen. There is been no relief in pain with IV Toradol given. Will order 4 mg of morphine. Discussed with patient recommended admission to hospital for further evaluation of abnormal findings on CT of abdomen pelvis. Patient is amenable to ED admission planning. Called and discussed patient case and ED work-up with inpatient management physician Dr. Davies who agrees patient's case warrants admission to the medical surgical unit. Dr. Davies requested consult of GI. Patient is awaiting hospital bed assignment by house calls nurse practitioner. Earl Disclaimer: Earl Disclaimer: This electronic medical record was generated, in whole or in part, using a voice recognition dictation system. Departure Departure Impression: Primary Impression: Rectal pain Additional Impressions: Pain in abdomen on palpation Abnormal computed tomography angiography (CTA) of abdomen and pelvis Urticaria Disposition: ADMITTED INPATIENT Admitting Physician: ALEJANDRO (Admit to Dr. Davies, MedSur unit, consult GI specialty) Condition: STABLE Referrals: Sola CARLOS MD (PCP) EULOGIO MACDONALD APRN Oct 22, 2021 14:43
[2021-10-22] MEDS ORDERED: MORPHINE SULFATE 4 MG/ML INJ. IVP ONE (14:45)
--- NOTE | 2021-10-22 16:13 | PDOC2 ---
GI CONSULT Date of Service: DATE: 10/22/21 TIME: 16:03 Reason For Consult: rectal pain, abdominal pain, abnormal CT HPI: HPI: 31 y/o female seen in ER. "Deep" rectal pain for about a month, worse x 1.5 weeks. Pain radiates around to right hip - also "deep." Constant, worse with sitting, standing, stooling. Saw PCP - tried steroid suppositories and Recticare for hemorrhoids - no help. Doesn't feel like hemorrhoid pain. Stools are soft/loose (says no change in pattern) and sometimes mucousy. Also has some "leakage" of light red blood off and on (started in June) - with wiping or sometimes in pants. Associated w/ intermittent n/v, bloating, some early satiety. H/o GERD (main symptom is nighttime cough - diagnosed by dental cream maker) improved w/ omeprazole 40mg QD. Historically has alternating stool pattern (but denies recent diarrhea or constipation). No dysphagia, hematemesis, or melena. 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 Unclear if had previous EGD, though gives h/o "ulcers" in high school. Reports two past colonoscopies - last >10 years ago, recalls no significant findings. S/p cholecystectomy (preop GB EF 4%, normal IOC, path unavailable for review). Hepatic steatosis on past imaging. No pancreas history. Has been taking Tylenol and ibuprofen for pain. PMH: PMH: asthma, allergies D&C, laparoscopy for endometriosis, x 2, tubal ligation, partial hysterectomy (for bleeding and "pre cancer cells"), cholecystectomy, incisional hernia repair w/ mesh FH: Family History: Cancer (unknown kind), Other (ulcers) Social History: Smoke: <1 pack per day (vapes occasionally) ALCOHOL: none Drugs: None ROS: GEN: Denies fevers, chills, sweats HEENT: Denies blurred vision, sore throat CV: Denies chest pain RESP: Denies shortness of air, cough GI: Per HPI : Denies hematuria, dysuria ENDO: Denies weight changes NEURO: Denies confusion, dizziness MSK: Denies weakness, joint pain/swelling SKIN: Denies jaundice, pruritus Vitals: Vitals: Vital Signs Date Time Temp Pulse Resp B/P (MAP) Pulse Ox O2 Delivery O2 Flow Rate FiO2 10/22/21 15:20 18 100 Room Air 10/22/21 15:18 88 132/75 (94) 10/22/21 12:37 99.2 99.2 Labs: Labs: Laboratory Tests Test 10/22/21 12:46 10/22/21 13:32 Urine Collection Type Unknown Urine Color Yellow Urine Clarity Clear Urine pH 5.5 (<5.0-8.0) Urine Specific [place] >=1.030 (1.000-1.030) Urine Protein Negative mg/dL (NEG-TRACE) Urine Glucose (UA) Negative mg/dL (NEG) Urine Ketones (Stick) Negative mg/dL (NEG) Urine Blood Moderate (NEG) Urine Nitrite Negative (NEG) Urine Bilirubin Negative (NEG) Urine Urobilinogen Dipstick 0.2 mg/dL (0.2 mg/dL) Urine Leukocyte Esterase Negative (NEG) Urine RBC 3-5 /HPF (0-2) Urine WBC 1-4 /HPF (0-4) Urine Squamous Epithelial Cells Many /LPF Urine Bacteria Many /HPF (0-FEW) Urine Hyaline Casts Moderate /HPF Urine Mucus Marked /LPF Urine Test Negative (NEG) White Blood Count 6.3 x10^3/uL (4.0-11.0) Red Blood Count 4.38 x10^6/uL (3.50-5.40) Hemoglobin 13.5 g/dL (12.0-15.5) Hematocrit 39.7 % (36.0-47.0) Mean Corpuscular Volume 91 fL (79-100) Mean Corpuscular Hemoglobin 31 pg (25-35) Mean Corpuscular Hemoglobin Concent 34 g/dL (31-37) Red Cell Distribution Width 12.3 % (11.5-14.5) Platelet Count 261 x10^3/uL (140-400) Neutrophils (%) (Auto) 67 % (31-73) Lymphocytes (%) (Auto) 20 % (24-48) Monocytes (%) (Auto) 9 % (0-9) Eosinophils (%) (Auto) 4 % (0-3) Basophils (%) (Auto) 0 % (0-3) Neutrophils # (Auto) 4.2 x10^3/uL (1.8-7.7) Lymphocytes # (Auto) 1.3 x10^3/uL (1.0-4.8) Monocytes # (Auto) 0.6 x10^3/uL (0.0-1.1) Eosinophils # (Auto) 0.2 x10^3/uL (0.0-0.7) Basophils # (Auto) 0.0 x10^3/uL (0.0-0.2) Sodium Level 141 mmol/L (136-145) Potassium Level 4.0 mmol/L (3.5-5.1) Chloride Level 105 mmol/L (98-107) Carbon Dioxide Level 24 mmol/L (21-32) Anion Gap 12 (6-14) Blood Urea Nitrogen 11 mg/dL (7-20) Creatinine 1.0 mg/dL (0.6-1.0) Estimated GFR (Cockcroft-Gault) 64.7 BUN/Creatinine Ratio 11 (6-20) Glucose Level 90 mg/dL (70-99) Calcium Level 8.8 mg/dL (8.5-10.1) Total Bilirubin 0.5 mg/dL (0.2-1.0) Aspartate Amino Transf (AST/SGOT) 20 U/L (15-37) Alanine Aminotransferase (ALT/SGPT) 25 U/L (14-59) Alkaline Phosphatase 59 U/L (46-116) Total Protein 7.4 g/dL (6.4-8.2) Albumin 3.6 g/dL (3.4-5.0) Albumin/Globulin Ratio 0.9 (1.0-1.7) Lipase 65 U/L (73-393) Allergies: Coded Allergies: latex (Verified Allergy, Intermediate, 03/26/17) blisters and rash Medications: Current Medications Medications (Trade) Dose Ordered Sig/Angelina Route PRN Reason Start Time Stop Time Status Last Admin Dose Admin Sodium Chloride 1,000 ml @ 1,000 mls/hr 1X ONCE IV 10/22/21 13:30 10/22/21 14:29 DC 10/22/21 13:46 Ketorolac Tromethamine (Toradol 30mg Vial) 30 mg 1X ONCE IVP 10/22/21 13:30 10/22/21 13:38 DC 10/22/21 13:45 Ondansetron HCl (Zofran) 4 mg 1X ONCE IVP 10/22/21 13:30 10/22/21 13:38 DC 10/22/21 13:45 Diphenhydramine HCl (Benadryl) 50 mg 1X ONCE IVP 10/22/21 14:15 10/22/21 14:24 DC 10/22/21 15:20 Morphine Sulfate (Morphine Sulfate) 4 mg 1X ONCE IVP 10/22/21 14:45 10/22/21 14:46 DC 10/22/21 15:20 Imaging: Imaging: CT A/P 10/22 FINDINGS: Evaluation of the lower thorax demonstrates no infiltrate or pleural effusion. No hepatic lesion is seen. The gallbladder is surgically absent. The pancreas, spleen, stomach and adrenal glands are unremarkable. There is no nephroureterolithiasis or hydronephrosis. No suspicious renal lesion is seen. The bladder is nearly empty. The appendix is surgically absent. There is no bowel obstruction or abnormal bowel wall thickening. There are metallic clips within the midline right ventral peritoneum and anterior left ventral peritoneum, the configuration of which favors displaced fallopian tube closure devices there is a third metallic clip within the midline posterior cul-de-sac. There is trace pelvic free fluid. There is a 4.0 cm soft tissue structure within the right hemipelvis which may be ovarian or uterine in etiology. The left ovary is separately unremarkable. There is trace pelvic free fluid. The aorta is normal in caliber. There is a 1.5 cm nodule within the mesentery of the right midabdomen, possibly due to an enlarged lymph node. There is no acute or suspicious osseous finding. IMPRESSION: 1. No evidence of nephroureterolithiasis or hydronephrosis. 2. Trace pelvic free fluid, within physiologic limits for a premenopausal female. There is a 4.0 cm structure within the right hemipelvis which may be ovarian or uterine in etiology. The contralateral ovary is unremarkable. Correlate with surgical history and pelvic sonography if there is clinical concern. 3. Suspected displaced fallopian tube closure devices within the peritoneum. 4. 1.5 cm soft tissue nodule within the mesentery of the right midabdomen. This is increased or new compared to the prior study, possibly due to an enlarged lymph node. Short-term follow-up with a CT in approximately 6 months is recommended to exclude neoplasm. PE: GEN: seems uncomfortable, mother present HEENT: Atraumatic, PERRL LUNGS: CTAB HEART: RRR ABD: NABS, S/ND, tenderness quite laterally right pelvis, on rectal exam: small non-tender non-thrombosed external hemorrhoids, right anal tenderness EXTREMITY: No edema SKIN: No rashes, no jaundice NEURO/PSYCH: A & O 3 A/P: A/P: "Rectal" pain - radiates to right hip region N/v, early satiety Abnormal CT - 4.0 cm structure within right hemipelvis (may be ovarian or uterine in etiology), suspected displaced fallopian tube closure devices within peritoneum, 1.5 cm soft tissue nodule within mesentery of right midabdomen Remote h/o "ulcers" GERD, remote h/o ulcers - on PPI CRC screen - reports normal past colonoscopies H/o irregular bowel habits, occasional rectal bleeding/mucous Hemorrhoids S/p cholecystectomy Hepatic steatosis -- Not sure this is entirely a GI problem - will ask for [employer] and surgery opinions. JOSE BRANDT Oct 22, 2021 16:13
[2021-10-22] MEDS ORDERED: PANTOPRAZOLE 40 MG TABLET.DR. PO SCH ×2 (16:30→21:00)
--- NOTE | 2021-10-22 17:08 | HP ---
DATE OF SERVICE: 10/22/2021 ADMIT DATE: 10/22/2021 CHIEF COMPLAINT: Rectal pain. HISTORY OF PRESENT ILLNESS: The patient is a pleasant 31-year-old female who presents with rectal pain started about a week ago. Her primary care doctor put her on some hydrocortisone AC suppositories for probable hemorrhoids. She rates her pain at 7/10. She has associated anxiety. I discussed the case with the ER physician. Her CAT scan is showing probable lymph node and also there is displaced fallopian tube device. I suspect that was a clip. We are going to admit the patient and consult GI. PAST MEDICAL HISTORY: Appendectomy, cholecystectomy, ovarian cyst, , tonsillectomy, tubal ligation, tobacco abuse. ALLERGIES: LATEX. FAMILY HISTORY: Diabetes. SOCIAL HISTORY: She smokes. No drink or drugs. She stays at home with her kids. MEDICATIONS: Reviewed, please refer to the MRAD. REVIEW OF SYSTEMS: GENERAL: No history of weight change, weakness or fevers. SKIN: No bruising, hair changes or rashes. EYES: No blurred, double or loss of vision. NOSE AND THROAT: No history of nosebleeds, hoarseness or sore throat. HEART: No history of palpitations, chest pain or shortness of breath on exertion. LUNGS: Denies cough, hemoptysis, wheezing or shortness of breath. GASTROINTESTINAL: She complains of some rectal pain. GENITOURINARY: No history of frequency, urgency, hesitancy or nocturia. NEUROLOGIC: Denies history of numbness, tingling, tremor or weakness. PSYCHIATRIC: No history of panic, anxiety or depression. ENDOCRINE: No history of heat or cold intolerance, polyuria or polydipsia. EXTREMITIES: Denies muscle weakness, joint pain, pain on walking or stiffness. PHYSICAL EXAMINATION: VITALS: Within normal limits and are stable. GENERAL: No apparent distress. Alert and oriented. HEENT: Normal cephalic atraumatic, external auditory canals are patent EYES: Extraocular muscles are intact, pupils are equally round and reactive to light and accommodation MUSCULOSKELETAL: Well developed, well nourished, good range of motion ENDOCRINE: No thyromegaly was palpated LYMPHATICS: No cervical chain or axillary nodes were noted HEMATOPOIETIC: No bruising NECK: Supple, no JVD, no thyromegaly was noted. LUNGS: Clear to auscultation in all lung oneil without rhonchi or wheezing. HEART: RRR, S1, S2 present. Peripheral pulses intact, no obvious murmurs were noted. ABDOMEN: Soft, nontender. Positive bowel sounds no organomegaly, normal bowel sounds. EXTREMITIES: Without any cyanosis, clubbing, or edema. Pedal pulses intact, Homans sign is negative. NEUROLOGIC: Normal speech, normal tone. A and O x 3, moves all extremities, no obvious focal deficits. PSYCHIATRIC: Normal affect, normal mood. Stable. SKIN: No ulcerations or rashes, good skin turgor, no jaundice. VASCULAR: Good capillary refill, neurovascular bundle appears to be intact. DIAGNOSTIC STUDIES: CT of the abdomen shows a 1.5 cm nodule in the mesentery suspicious for an enlarged lymph node. There is a previously mentioned fallopian tube closure device that has displaced. There is some trace fluid. ASSESSMENT AND PLAN: Rectal pain with a slightly abnormal imaging. The patient has been admitted. We will consult GI. P.r.n. pain meds, IV fluids, home meds. DVT prophylaxis. Full code. IV Protonix. Consult General Surgery and CENTERPUNCHER. GRACE/FARHEEN DR: GRACE/nakita TID: [id number]
[2021-10-22] MEDS ORDERED: PHEN51CR RC (20:02)
[2021-10-22] MEDS ORDERED: MELA3TAB43 PO (20:02)
[2021-10-22] MEDS ORDERED: CETI10TA74 PO (20:02)
[2021-10-22] MEDS ORDERED: PHEN1SUP RC (20:02)
[2021-10-22] MEDS ORDERED: ONDANSETRON PF 4 MG/2 ML VIAL. IVP PRN (20:30)
[2021-10-22] MEDS ORDERED: HYDROCORTISONE ACETATE 25 MG SUPP.RECT PR PRN (20:45)
[2021-10-22] MEDS: IBUPROFEN 400 MG TABLET. PO PRN (20:59)
[2021-10-22] MEDS ORDERED: CETIRIZINE HCL 10 MG TABLET. PO SCH (21:00)
[2021-10-22] MEDS ORDERED: PHENYLEPH/MINERAL OIL/PETROLAT RECTAL OINTMENT TUBE. RC PRN (21:00)
[2021-10-22 23:00] VITALS: BP 116/68
[2021-10-23] MEDS: IBUPROFEN 400 MG TABLET. PO PRN ×2 (03:12→08:59)
[2021-10-23 03:22] VITALS: BP 122/66
[2021-10-23 07:00] VITALS: BP 117/60
[2021-10-23] MEDS ORDERED: POLYETHYLENE GLYCOL 3350 17 GM PACKET. PO PRN (09:00)
--- NOTE | 2021-10-23 09:00 | PDOC ---
Date of Service: DATE: 10/23/21 TIME: 08:58 Subjective: Subjective: In pain. Tried to eat a little, is drinking water. No stools/bleeding. Objective: Vital Signs: Vital Signs Date Time Temp Pulse Resp B/P (MAP) Pulse Ox O2 Delivery O2 Flow Rate FiO2 10/23/21 07:00 98.0 65 18 117/60 (79) 97 Room Air 98.0 PE: GEN: uncomfortable, laying on right side LUNGS: clear anteriorly HEART: RRR ABD: lateral right pelvic discomfort, soft NEURO/PSYCH: A & O 3 A/P: Rectal/pelvic pain Abnormal CT - 4.0 cm structure within right hemipelvis, suspected displaced fallopian tube closure devices within peritoneum, 1.5 cm soft tissue nodule within mesentery of right midabdomen -- Ongoing pain. Await PROPERTY AND CASUALTY INSURANCE AGENT and surgery opinions. Justicifation of Admission Dx: Justifications for Admission: Justification of Admission Dx: Yes JOSE BRANDT Oct 23, 2021 09:00
--- NOTE | 2021-10-23 09:18 | PDOC2 ---
ALLIE VELAZQUEZ Umang GRANTS MANAGER 10/23/21 0918: CONSULT Date of Consult Date of Consult DATE: 10/23/21 TIME: 09:10 Reason for Consult Reason for Consult: abnormal CT, rectal pain Referring Physician Referring Physician: JOSÉ MIGUEL Identification/Chief Complaint Chief Complaint rectal pain Source Source: Chart review, Patient History of Present Illness Reason for Visit: Reports several weeks of worsening rectal pain. Initially treated by PCP for hemorrhoids. Over the last 2 weeks the pain has worsened, radiation to right hip area, right abdomen. Reports issues with constipation, diarrhea and blood in stool since June Colonoscopy > 10 years ago, believes was having rectal bleeding at that time. thinks findings were benign Hx of appendectomy, cholecystectomy, c section, partial hysterectomy Past Medical History Pulmonary: Asthma GI: GERD Past Surgical History Past Surgical History: Appendectomy, Cholecystectomy, , Hysterectomy Family History Family History: Cancer (fathers side, not sure type) Social History <1 pack per day (vapes occasionally) ALCOHOL: none Drugs: None Lives: with Family Current Problem List Problem List Problems Medical Problems: (1) Abnormal computed tomography angiography (CTA) of abdomen and pelvis Status: Acute (2) Pain in abdomen on palpation Status: Acute (3) Rectal pain Status: Acute (4) Urticaria Status: Acute Current Medications Current Medications Current Medications Sodium Chloride 1,000 ml @ 1,000 mls/hr 1X ONCE IV Last administered on 10/22/21at 13:46; Start 10/22/21 at 13:30; Stop 10/22/21 at 14:29; Status DC Ketorolac Tromethamine (Toradol 30mg Vial) 30 mg 1X ONCE IVP Last administered on 10/22/21at 13:45; Start 10/22/21 at 13:30; Stop 10/22/21 at 13:38; Status DC Ondansetron HCl (Zofran) 4 mg 1X ONCE IVP Last administered on 10/22/21at 13:45; Start 10/22/21 at 13:30; Stop 10/22/21 at 13:38; Status DC Diphenhydramine HCl (Benadryl) 50 mg 1X ONCE IVP Last administered on 10/22/21at 15:20; Start 10/22/21 at 14:15; Stop 10/22/21 at 14:24; Status DC Morphine Sulfate (Morphine Sulfate) 4 mg 1X ONCE IVP Last administered on 10/22/21at 15:20; Start 10/22/21 at 14:45; Stop 10/22/21 at 14:46; Status DC Pantoprazole Sodium (Protonix) 40 mg DAILYAC PO ; Start 10/22/21 at 16:30; Stop 10/22/21 at 20:31; Status DC Pantoprazole Sodium (Protonix) 40 mg QHS PO Last administered on 10/22/21at 20:59; Start 10/22/21 at 21:00 Cetirizine HCl (ZyrTEC) 10 mg QHS PO Last administered on 10/22/21at 20:59; Start 10/22/21 at 21:00 Phenyleph/Shark Oil/Min Oil/Petrol (Preparation H) 1 reji PRN QID PRN RC RECTAL PAIN; Start 10/22/21 at 21:00 Hydrocortisone Acetate (Anucort-Hc) 25 mg PRN BID PRN WA RECTAL PAIN; Start 10/22/21 at 20:45 Ondansetron HCl (Zofran) 4 mg PRN Q6HRS PRN IVP NAUSEA/VOMITING; Start 10/22/21 at 20:30 Ibuprofen (Motrin) 400 mg PRN Q6HRS PRN PO PAIN Last administered on 10/23/21at 08:59; Start 10/22/21 at 20:30 Polyethylene Glycol (miraLAX PACKET) 17 gm PRN DAILY PRN PO CONSTIPATION; Start 10/23/21 at 09:00; Status UNV Active Scripts Active Reported Melatonin 3 Mg Tab.rapdis 1 Tab PO PRN QHS PRN 30 Days Zyrtec (Cetirizine Hcl) 10 Mg Tablet 1 Tab PO QHS Hemorrhoidal Cream (Phenyleph/Pramoxin/Glycr/W.pet) 51 Gm Cream..g. 51 Gm RC PRN BID PRN Hemorrhoidal Suppository (Phenylephrine HCl/Hard Fat) 1 Each Supp.rect 1 Each RC PRN BID PRN Omeprazole 20 Mg Capsule.dr 40 Mg PO QHS Allergies Allergies: Coded Allergies: latex (Verified Allergy, Intermediate, 03/26/17) blisters and rash ROS General: YES: Chills; No: Other (fevers) PSYCHOLOGICAL ROS: YES: Anxiety; No: Depression Eyes: No Blurry vision HEENT: No: Heacaches, Hearing change Hematological and Lymphatic: YES: Bleeding Problems (? rectal ); No: Blood Clots Respiratory: No: Cough, Shortness of breath Cardiovascular: No Chest Pain, No Palpitations Gastrointestinal: Yes Other (see hpi) Genitourinary: No Dysuria, No Hematuria Musculoskeletal: No Joint Pain, No Muscle Pain Neurological: No Impaired Coord/balance, No Numbness/Tingling Skin: No Pruritus, No Rash Physical Exam General: Alert, Oriented X3, Cooperative HEENT: Atraumatic, PERRLA Lungs: Clear to auscultation, Normal air movement Heart: Regular rate, Normal S1, Normal S2 Abdomen: Soft, Other (midly tender right pelvic area, no peritoneal signs ) Extremities: No clubbing, No cyanosis Skin: No rashes, No breakdown Neuro: Normal gait, Normal speech Psych/Mental Status: Mental status NL, Mood NL MUSCULOSKELETAL: No deformity, No swelling Vitals VITALS Vital Signs Date Time Temp Pulse Resp B/P (MAP) Pulse Ox O2 Delivery O2 Flow Rate FiO2 10/23/21 07:00 98.0 65 18 117/60 (79) 97 Room Air 98.0 Labs Labs Laboratory Tests Test 10/22/21 12:46 10/22/21 13:32 Urine Collection Type Unknown Urine Color Yellow Urine Clarity Clear Urine pH 5.5 (<5.0-8.0) Urine Specific [place] >=1.030 (1.000-1.030) Urine Protein Negative mg/dL (NEG-TRACE) Urine Glucose (UA) Negative mg/dL (NEG) Urine Ketones (Stick) Negative mg/dL (NEG) Urine Blood Moderate (NEG) Urine Nitrite Negative (NEG) Urine Bilirubin Negative (NEG) Urine Urobilinogen Dipstick 0.2 mg/dL (0.2 mg/dL) Urine Leukocyte Esterase Negative (NEG) Urine RBC 3-5 /HPF (0-2) Urine WBC 1-4 /HPF (0-4) Urine Squamous Epithelial Cells Many /LPF Urine Bacteria Many /HPF (0-FEW) Urine Hyaline Casts Moderate /HPF Urine Mucus Marked /LPF Urine Test Negative (NEG) White Blood Count 6.3 x10^3/uL (4.0-11.0) Red Blood Count 4.38 x10^6/uL (3.50-5.40) Hemoglobin 13.5 g/dL (12.0-15.5) Hematocrit 39.7 % (36.0-47.0) Mean Corpuscular Volume 91 fL (79-100) Mean Corpuscular Hemoglobin 31 pg (25-35) Mean Corpuscular Hemoglobin Concent 34 g/dL (31-37) Red Cell Distribution Width 12.3 % (11.5-14.5) Platelet Count 261 x10^3/uL (140-400) Neutrophils (%) (Auto) 67 % (31-73) Lymphocytes (%) (Auto) 20 % (24-48) Monocytes (%) (Auto) 9 % (0-9) Eosinophils (%) (Auto) 4 % (0-3) Basophils (%) (Auto) 0 % (0-3) Neutrophils # (Auto) 4.2 x10^3/uL (1.8-7.7) Lymphocytes # (Auto) 1.3 x10^3/uL (1.0-4.8) Monocytes # (Auto) 0.6 x10^3/uL (0.0-1.1) Eosinophils # (Auto) 0.2 x10^3/uL (0.0-0.7) Basophils # (Auto) 0.0 x10^3/uL (0.0-0.2) Sodium Level 141 mmol/L (136-145) Potassium Level 4.0 mmol/L (3.5-5.1) Chloride Level 105 mmol/L (98-107) Carbon Dioxide Level 24 mmol/L (21-32) Anion Gap 12 (6-14) Blood Urea Nitrogen 11 mg/dL (7-20) Creatinine 1.0 mg/dL (0.6-1.0) Estimated GFR (Cockcroft-Gault) 64.7 BUN/Creatinine Ratio 11 (6-20) Glucose Level 90 mg/dL (70-99) Calcium Level 8.8 mg/dL (8.5-10.1) Total Bilirubin 0.5 mg/dL (0.2-1.0) Aspartate Amino Transf (AST/SGOT) 20 U/L (15-37) Alanine Aminotransferase (ALT/SGPT) 25 U/L (14-59) Alkaline Phosphatase 59 U/L (46-116) Total Protein 7.4 g/dL (6.4-8.2) Albumin 3.6 g/dL (3.4-5.0) Albumin/Globulin Ratio 0.9 (1.0-1.7) Lipase 65 U/L (73-393) Laboratory Tests Test 10/22/21 12:46 10/22/21 13:32 Urine Collection Type Unknown Urine Color Yellow Urine Clarity Clear Urine pH 5.5 (<5.0-8.0) Urine Specific [place] >=1.030 (1.000-1.030) Urine Protein Negative mg/dL (NEG-TRACE) Urine Glucose (UA) Negative mg/dL (NEG) Urine Ketones (Stick) Negative mg/dL (NEG) Urine Blood Moderate (NEG) Urine Nitrite Negative (NEG) Urine Bilirubin Negative (NEG) Urine Urobilinogen Dipstick 0.2 mg/dL (0.2 mg/dL) Urine Leukocyte Esterase Negative (NEG) Urine RBC 3-5 /HPF (0-2) Urine WBC 1-4 /HPF (0-4) Urine Squamous Epithelial Cells Many /LPF Urine Bacteria Many /HPF (0-FEW) Urine Hyaline Casts Moderate /HPF Urine Mucus Marked /LPF Urine Test Negative (NEG) White Blood Count 6.3 x10^3/uL (4.0-11.0) Red Blood Count 4.38 x10^6/uL (3.50-5.40) Hemoglobin 13.5 g/dL (12.0-15.5) Hematocrit 39.7 % (36.0-47.0) Mean Corpuscular Volume 91 fL (79-100) Mean Corpuscular Hemoglobin 31 pg (25-35) Mean Corpuscular Hemoglobin Concent 34 g/dL (31-37) Red Cell Distribution Width 12.3 % (11.5-14.5) Platelet Count 261 x10^3/uL (140-400) Neutrophils (%) (Auto) 67 % (31-73) Lymphocytes (%) (Auto) 20 % (24-48) Monocytes (%) (Auto) 9 % (0-9) Eosinophils (%) (Auto) 4 % (0-3) Basophils (%) (Auto) 0 % (0-3) Neutrophils # (Auto) 4.2 x10^3/uL (1.8-7.7) Lymphocytes # (Auto) 1.3 x10^3/uL (1.0-4.8) Monocytes # (Auto) 0.6 x10^3/uL (0.0-1.1) Eosinophils # (Auto) 0.2 x10^3/uL (0.0-0.7) Basophils # (Auto) 0.0 x10^3/uL (0.0-0.2) Sodium Level 141 mmol/L (136-145) Potassium Level 4.0 mmol/L (3.5-5.1) Chloride Level 105 mmol/L (98-107) Carbon Dioxide Level 24 mmol/L (21-32) Anion Gap 12 (6-14) Blood Urea Nitrogen 11 mg/dL (7-20) Creatinine 1.0 mg/dL (0.6-1.0) Estimated GFR (Cockcroft-Gault) 64.7 BUN/Creatinine Ratio 11 (6-20) Glucose Level 90 mg/dL (70-99) Calcium Level 8.8 mg/dL (8.5-10.1) Total Bilirubin 0.5 mg/dL (0.2-1.0) Aspartate Amino Transf (AST/SGOT) 20 U/L (15-37) Alanine Aminotransferase (ALT/SGPT) 25 U/L (14-59) Alkaline Phosphatase 59 U/L (46-116) Total Protein 7.4 g/dL (6.4-8.2) Albumin 3.6 g/dL (3.4-5.0) Albumin/Globulin Ratio 0.9 (1.0-1.7) Lipase 65 U/L (73-393) Assessment/Plan Assessment/Plan pelvic, rectal pain CT reviewed agree with RETAIL WAREHOUSE SUPERVISOR eval will review with TANNER Ball STEPHEN J MD 10/23/21 1307: CONSULT Assessment/Plan Assessment/Plan Pt seen and examined. Agree with Ms. Velazquez's note Pt with c/o pain onset and then developed right flank rash c/o pain from sacrum to right flank and right back abd soft, ND, NTTP macular rash in associated dermatome right flank suspect shingles, but agree with radiation technician and GI evaluation. Thanks for consult! VLADALLIE Umang HORTON Oct 23, 2021 09:18 MIRTHA HART MD Oct 23, 2021 13:07
[2021-10-23 11:00] VITALS: BP 121/73
--- NOTE | 2021-10-23 11:51 | RAD ---
EXAM: Pelvic sonogram. HISTORY: Ovarian or uterine soft tissue on recent CT. TECHNIQUE: Sonographic imaging of the pelvis was performed. COMPARISON: CT dated 10/22/2021. FINDINGS: The uterus is surgically absent. The right ovary measures 4.6 x 4.0 x 3.9 cm and demonstrat e normal blood flow. There is a 2.9 cm complicated right ovarian cyst, possibly hemorrhagic in etiolo gy. The left ovary is obscured due to bowel gas. There is no pelvic free fluid. IMPRESSION: 1. 2.9 cm suspected hemorrhagic right ovarian cyst. The right ovary demonstrates normal blood flow. 2. Obscured left ovary. 3. Surgically absent uterus. Electronically signed by: Michelle Tyler MD (10/23/2021 11:49 AM) [id number]
--- NOTE | 2021-10-23 11:57 | PDOC2 ---
CONSULT Date of Consult Date of Consult DATE: 10/23/21 TIME: 11:56 Reason for Consult Reason for Consult: Pelvic pain, abnml CT History of Present Illness Reason for Visit: 31y who presented to the ER with severe pain in her rectum. The pain has began to migrate to her kidneys. This has been going on for the last 1.5 wks. Over the last 3-4 days the pain has gotten progressively worse. The pt had an upcoming appt with GI, but she did not feel that she could wait 3 wks. She also has noticed some bloating and rectal bleeding which she thought may be related to hemorrhoids. In the ER a CT was obtained revealing the followin. No evidence of nephroureterolithiasis or hydronephrosis. 2. Trace pelvic free fluid, within physiologic limits for a premenopausal fema le. There is a 4.0 cm structure within the right hemipelvis which may be ovarian or uterine in etiology. The contralateral ovary is unremarkable. Correlate with surgical history and pelvic sonography if there is clinical concern. 3. Suspected displaced fallopian tube closure devices within the peritoneum. 4. 1.5 cm soft tissue nodule within the mesentery of the right midabdomen. This is increased or new compared to the prior study, possibly due to an enlarged lymph node. Short-term follow-up with a CT in approximately 6 months is recommended to exclude neoplasm. The pt had a LAVH about 3-[address] Vasquez. Her ovaries were retained. She did have some mild hot flashes after the hysterectomy but has never required ERT/HRT. When she was much younger, she underwent a ExLap for suspected endometriosis. She states that she was having chronic ovarian cyst. At the time of surgery, they discovered her appendix was abnml so it was removed. The pt also has noticed a rash that appeared on her right arm and right flank/back 2 days ago. PMH: Asthma PSH: Exlap -> Appy, Lap Zenobia, hernia repair with mesh, C/S x 2, the last with a BTL, LAVH Meds: Zyrtec, omeprazole, melatonin, allergy shots All: Latex, parabens OBHx: SAB x 3, 25wk C/S, 34wk C/S Soda Dispenser: LMP 3-4 yrs ago with hysterectomy No h/o ERT/HRT Menarche at 8yo / irregular 1-3 months SH: Vape, no etOH FH: noncontributory Past Medical History Pulmonary: Asthma GI: GERD Past Surgical History Past Surgical History: Appendectomy, Cholecystectomy, , Hysterectomy Family History Family History: Cancer (fathers side, not sure type) Social History <1 pack per day (vapes occasionally) ALCOHOL: none Drugs: None Lives: with Family Current Problem List Problem List Problems Medical Problems: (1) Abnormal computed tomography angiography (CTA) of abdomen and pelvis Status: Acute (2) Pain in abdomen on palpation Status: Acute (3) Rectal pain Status: Acute (4) Urticaria Status: Acute Current Medications Current Medications Current Medications Sodium Chloride 1,000 ml @ 1,000 mls/hr 1X ONCE IV Last administered on 10/22/21at 13:46; Start 10/22/21 at 13:30; Stop 10/22/21 at 14:29; Status DC Ketorolac Tromethamine (Toradol 30mg Vial) 30 mg 1X ONCE IVP Last administered on 10/22/21at 13:45; Start 10/22/21 at 13:30; Stop 10/22/21 at 13:38; Status DC Ondansetron HCl (Zofran) 4 mg 1X ONCE IVP Last administered on 10/22/21at 13:45; Start 10/22/21 at 13:30; Stop 10/22/21 at 13:38; Status DC Diphenhydramine HCl (Benadryl) 50 mg 1X ONCE IVP Last administered on 10/22/21at 15:20; Start 10/22/21 at 14:15; Stop 10/22/21 at 14:24; Status DC Morphine Sulfate (Morphine Sulfate) 4 mg 1X ONCE IVP Last administered on 10/22/21at 15:20; Start 10/22/21 at 14:45; Stop 10/22/21 at 14:46; Status DC Pantoprazole Sodium (Protonix) 40 mg DAILYAC PO ; Start 10/22/21 at 16:30; Stop 10/22/21 at 20:31; Status DC Pantoprazole Sodium (Protonix) 40 mg QHS PO Last administered on 10/22/21at 20:59; Start 10/22/21 at 21:00 Cetirizine HCl (ZyrTEC) 10 mg QHS PO Last administered on 10/22/21at 20:59; Start 10/22/21 at 21:00 Phenyleph/Shark Oil/Min Oil/Petrol (Preparation H) 1 reji PRN QID PRN RC RECTAL PAIN; Start 10/22/21 at 21:00 Hydrocortisone Acetate (Anucort-Hc) 25 mg PRN BID PRN AR RECTAL PAIN; Start 10/22/21 at 20:45 Ondansetron HCl (Zofran) 4 mg PRN Q6HRS PRN IVP NAUSEA/VOMITING; Start 10/22/21 at 20:30 Ibuprofen (Motrin) 400 mg PRN Q6HRS PRN PO PAIN Last administered on 10/23/21at 08:59; Start 10/22/21 at 20:30 Polyethylene Glycol (miraLAX PACKET) 17 gm PRN DAILY PRN PO CONSTIPATION; Start 10/23/21 at 09:00 Active Scripts Active Reported Melatonin 3 Mg Tab.rapdis 1 Tab PO PRN QHS PRN 30 Days Zyrtec (Cetirizine Hcl) 10 Mg Tablet 1 Tab PO QHS Hemorrhoidal Cream (Phenyleph/Pramoxin/Glycr/W.pet) 51 Gm Cream..g. 51 Gm RC PRN BID PRN Hemorrhoidal Suppository (Phenylephrine HCl/Hard Fat) 1 Each Supp.rect 1 Each RC PRN BID PRN Omeprazole 20 Mg Capsule.dr 40 Mg PO QHS Allergies Allergies: Coded Allergies: latex (Verified Allergy, Intermediate, 03/26/17) blisters and rash Physical Exam General: Alert, Oriented X3, Cooperative, No acute distress HEENT: PERRLA, Mucous membr. moist/pink Lungs: Clear to auscultation, Normal air movement Heart: Regular rate, Normal S1, Normal S2, No murmurs Abdomen: Normal bowel sounds, Soft, No hepatosplenomegaly, No masses Extremities: No clubbing, No cyanosis, No edema, Normal pulses, No tenderness/swelling Skin: No rashes, No breakdown Neuro: Normal gait, Normal speech, Normal tone, Sensation intact, Reflexes 2+ Psych/Mental Status: Mental status NL, Mood NL Vitals VITALS Vital Signs Date Time Temp Pulse Resp B/P (MAP) Pulse Ox O2 Delivery O2 Flow Rate FiO2 10/23/21 11:00 98.3 75 18 121/73 (89) 97 Room Air 98.3 Labs Labs Laboratory Tests Test 10/22/21 12:46 10/22/21 13:32 Urine Collection Type Unknown Urine Color Yellow Urine Clarity Clear Urine pH 5.5 (<5.0-8.0) Urine Specific [place] >=1.030 (1.000-1.030) Urine Protein Negative mg/dL (NEG-TRACE) Urine Glucose (UA) Negative mg/dL (NEG) Urine Ketones (Stick) Negative mg/dL (NEG) Urine Blood Moderate (NEG) Urine Nitrite Negative (NEG) Urine Bilirubin Negative (NEG) Urine Urobilinogen Dipstick 0.2 mg/dL (0.2 mg/dL) Urine Leukocyte Esterase Negative (NEG) Urine RBC 3-5 /HPF (0-2) Urine WBC 1-4 /HPF (0-4) Urine Squamous Epithelial Cells Many /LPF Urine Bacteria Many /HPF (0-FEW) Urine Hyaline Casts Moderate /HPF Urine Mucus Marked /LPF Urine Test Negative (NEG) White Blood Count 6.3 x10^3/uL (4.0-11.0) Red Blood Count 4.38 x10^6/uL (3.50-5.40) Hemoglobin 13.5 g/dL (12.0-15.5) Hematocrit 39.7 % (36.0-47.0) Mean Corpuscular Volume 91 fL (79-100) Mean Corpuscular Hemoglobin 31 pg (25-35) Mean Corpuscular Hemoglobin Concent 34 g/dL (31-37) Red Cell Distribution Width 12.3 % (11.5-14.5) Platelet Count 261 x10^3/uL (140-400) Neutrophils (%) (Auto) 67 % (31-73) Lymphocytes (%) (Auto) 20 % (24-48) Monocytes (%) (Auto) 9 % (0-9) Eosinophils (%) (Auto) 4 % (0-3) Basophils (%) (Auto) 0 % (0-3) Neutrophils # (Auto) 4.2 x10^3/uL (1.8-7.7) Lymphocytes # (Auto) 1.3 x10^3/uL (1.0-4.8) Monocytes # (Auto) 0.6 x10^3/uL (0.0-1.1) Eosinophils # (Auto) 0.2 x10^3/uL (0.0-0.7) Basophils # (Auto) 0.0 x10^3/uL (0.0-0.2) Sodium Level 141 mmol/L (136-145) Potassium Level 4.0 mmol/L (3.5-5.1) Chloride Level 105 mmol/L (98-107) Carbon Dioxide Level 24 mmol/L (21-32) Anion Gap 12 (6-14) Blood Urea Nitrogen 11 mg/dL (7-20) Creatinine 1.0 mg/dL (0.6-1.0) Estimated GFR (Cockcroft-Gault) 64.7 BUN/Creatinine Ratio 11 (6-20) Glucose Level 90 mg/dL (70-99) Calcium Level 8.8 mg/dL (8.5-10.1) Total Bilirubin 0.5 mg/dL (0.2-1.0) Aspartate Amino Transf (AST/SGOT) 20 U/L (15-37) Alanine Aminotransferase (ALT/SGPT) 25 U/L (14-59) Alkaline Phosphatase 59 U/L (46-116) Total Protein 7.4 g/dL (6.4-8.2) Albumin 3.6 g/dL (3.4-5.0) Albumin/Globulin Ratio 0.9 (1.0-1.7) Lipase 65 U/L (73-393) Laboratory Tests Test 10/22/21 12:46 10/22/21 13:32 Urine Collection Type Unknown Urine Color Yellow Urine Clarity Clear Urine pH 5.5 (<5.0-8.0) Urine Specific [place] >=1.030 (1.000-1.030) Urine Protein Negative mg/dL (NEG-TRACE) Urine Glucose (UA) Negative mg/dL (NEG) Urine Ketones (Stick) Negative mg/dL (NEG) Urine Blood Moderate (NEG) Urine Nitrite Negative (NEG) Urine Bilirubin Negative (NEG) Urine Urobilinogen Dipstick 0.2 mg/dL (0.2 mg/dL) Urine Leukocyte Esterase Negative (NEG) Urine RBC 3-5 /HPF (0-2) Urine WBC 1-4 /HPF (0-4) Urine Squamous Epithelial Cells Many /LPF Urine Bacteria Many /HPF (0-FEW) Urine Hyaline Casts Moderate /HPF Urine Mucus Marked /LPF Urine Test Negative (NEG) White Blood Count 6.3 x10^3/uL (4.0-11.0) Red Blood Count 4.38 x10^6/uL (3.50-5.40) Hemoglobin 13.5 g/dL (12.0-15.5) Hematocrit 39.7 % (36.0-47.0) Mean Corpuscular Volume 91 fL (79-100) Mean Corpuscular Hemoglobin 31 pg (25-35) Mean Corpuscular Hemoglobin Concent 34 g/dL (31-37) Red Cell Distribution Width 12.3 % (11.5-14.5) Platelet Count 261 x10^3/uL (140-400) Neutrophils (%) (Auto) 67 % (31-73) Lymphocytes (%) (Auto) 20 % (24-48) Monocytes (%) (Auto) 9 % (0-9) Eosinophils (%) (Auto) 4 % (0-3) Basophils (%) (Auto) 0 % (0-3) Neutrophils # (Auto) 4.2 x10^3/uL (1.8-7.7) Lymphocytes # (Auto) 1.3 x10^3/uL (1.0-4.8) Monocytes # (Auto) 0.6 x10^3/uL (0.0-1.1) Eosinophils # (Auto) 0.2 x10^3/uL (0.0-0.7) Basophils # (Auto) 0.0 x10^3/uL (0.0-0.2) Sodium Level 141 mmol/L (136-145) Potassium Level 4.0 mmol/L (3.5-5.1) Chloride Level 105 mmol/L (98-107) Carbon Dioxide Level 24 mmol/L (21-32) Anion Gap 12 (6-14) Blood Urea Nitrogen 11 mg/dL (7-20) Creatinine 1.0 mg/dL (0.6-1.0) Estimated GFR (Cockcroft-Gault) 64.7 BUN/Creatinine Ratio 11 (6-20) Glucose Level 90 mg/dL (70-99) Calcium Level 8.8 mg/dL (8.5-10.1) Total Bilirubin 0.5 mg/dL (0.2-1.0) Aspartate Amino Transf (AST/SGOT) 20 U/L (15-37) Alanine Aminotransferase (ALT/SGPT) 25 U/L (14-59) Alkaline Phosphatase 59 U/L (46-116) Total Protein 7.4 g/dL (6.4-8.2) Albumin 3.6 g/dL (3.4-5.0) Albumin/Globulin Ratio 0.9 (1.0-1.7) Lipase 65 U/L (73-393) Assessment/Plan Assessment/Plan Assessment 31y admitted for rectal/RLQ pain Recommendations: 1.) Rectal/RLQ pain significant GI component to pain, GI is seeing. Right pelvic mass seen on CT 2.) Pelvic mass 4 cm mass on the right. Would obtain a u/s to better delineate mass. Based on the size alone likely benign. 3.) s/p LAVH for benign indications 4.) Rash recent on set, management per hospitalist 5.) Contraception - LAVH 6.) C/S x 2 7.) Asthma 8.) Will cont to follow EULOGIO MCGOWAN MD Oct 23, 2021 11:57
--- NOTE | 2021-10-23 13:17 | DS ---
DATE OF DISCHARGE: 10/23/2021 ADMISSION DIAGNOSES: Rectal pain, 1.5 cm nodule in the mesentery on CAT scan, dislodged clip from prior ovarian surgery in the abdomen, resolving abdominal pain, history of appendectomy, cholecystectomy, ovarian cyst, section, tubal ligation, tobacco abuse. CONSULTS: General Surgery, GI and TECHNICAL AID. PROCEDURES: None. HOSPITAL COURSE: The patient is a pleasant younger female who presented with abdominal pain, was noted to have a 1.5 cm mass. We suspect it is simply a lymph node. It is in her mesentery. She also had a loose clip from her previous surgery. The above consults were obtained. So far, the patient looks great. I saw and examined her this morning. She wants to go home. We plan to discharge with close outpatient followup if okay with consultants. DISPOSITION: Home. ACTIVITY: As tolerated. DIET: Low sodium. DISCHARGE MEDICATIONS: Please see the MRAD. TOTAL TIME: 34 minutes. GRACE/PORFIRIO/[facility] [place] [facility] [place]: GRACE/nakita TID: [id number]
--- NOTE | 2021-10-23 15:27 | NUR ---
Discharge Note: EDGAR MENDEZ LEBANON Discharge instructions and discharge home medications reviewed with the patient and a copy given. All questions have been answered and understanding verbalized. The following instructions and handouts were given: Home meds as directed Handout on ovarian cyst, hemorrhoid Discussed with the patient to seek emergent care if with severe abdominal pain Follow up with PCP in a week for continuity of care. Follow up with primary diesel lube tech/ with Dr. Sparks. Discontinued lines and drains: IV intact, no complications Patient discharged to home with self care on 1425.
== END 2021-10-23 14:25 | disposition home or self-care (01) | DRG 392 ==
LOC: ER 12:35 → 5 NORTH 19:12
PROVIDERS: ADMIT Internal Medicine; ATTEND Internal Medicine
DX: K21.9 Gastro-esophageal reflux disease without esophagitis (principal); Z68.41 Body mass index [BMI] 40.0-44.9, adult; K62.89 Other specified diseases of anus and rectum; K76.0 Fatty (change of) liver, not elsewhere classified; E66.01 Morbid (severe) obesity due to excess calories; F17.210 Nicotine dependence, cigarettes, uncomplicated; K64.9 Unspecified hemorrhoids; K59.00 Constipation, unspecified; F41.9 Anxiety disorder, unspecified; J45.909 Unspecified asthma, uncomplicated; K43.2 Incisional hernia without obstruction or gangrene; Z83.3 Family history of diabetes mellitus; Z90.49 Acquired absence of other specified parts of digestive tract; Z90.711 Acquired absence of uterus with remaining cervical stump; Z98.51 Tubal ligation status; R31.9 Hematuria, unspecified
CPT/HCPCS: 36415; 74176; 76856; 80053; 81001; 81025; 83690; 85025; 96361; 96374; 96375; J1200; J1885; J2270; J2405; J7030; 99285-25; G0378

== ENCOUNTER → 2021-11-14 | Day surgery (SDC) | payer OTHER ==
[~2021-11-14] VITALS: Ht 157.5 cm; Wt 90.9 kg
[~2021-11-14] MED LIST changes: +CETI10TA74 PO; +FAMO40TA4 PO; +IV RINGERS,LACTATED 1000ML 1,000 ML IV SCH; +LIDOCAINE 2% PF 5 ML VIAL. ONE; +MELA3TAB43 PO; +PHEN1SUP RC; +PHEN51CR RC; +PROPOFOL 10 MG/ML (20ML) VIAL. IV ONE
[2021-11-14 06:29] VITALS: BP 136/88
[2021-11-14 07:37] VITALS: BP 122/72
== END | disposition home or self-care (01) ==
LOC: ENDOS 06:11
PROVIDERS: ATTEND Internal Medicine Gastroenterology
DX: K92.1 Melena (principal); K64.0 First degree hemorrhoids; K63.89 Other specified diseases of intestine; J45.909 Unspecified asthma, uncomplicated; E66.9 Obesity, unspecified; K21.9 Gastro-esophageal reflux disease without esophagitis; M19.90 Unspecified osteoarthritis, unspecified site; F41.9 Anxiety disorder, unspecified; F17.210 Nicotine dependence, cigarettes, uncomplicated; Z90.49 Acquired absence of other specified parts of digestive tract; Z90.710 Acquired absence of both cervix and uterus; Z98.51 Tubal ligation status; Z98.890 Other specified postprocedural states; Z79.899 Other long term (current) drug therapy; Z91.040 Latex allergy status; Z88.8 Allergy status to other drugs, medicaments and biological substances
CPT/HCPCS: 45378; J2704